=== PATIENT | female | born 1950 | race Caucasian/White ===

== ENCOUNTER 2016-09-07 01:01 | Observation (INO) ==
--- NOTE | 2016-09-07 01:34 | Emergency Department Note ---
Disposition Clinical Impression: Numbness, Sinus bradycardia Disposition: Admitted As Inpatient Condition: Good Referrals: Caden bAel MD [Primary Care Provider] - Forms: ED Satisfaction Letter Time of Disposition: 02:36 General Adult HPI - General Chief complaint: ED Neuro Symptoms/Deficit Stated complaint: facial numbness, L hand tightness Time Seen by Provider: 09/07/16 01:07 Source: patient, family Mode of arrival: ambulatory Limitations: no limitations Nursing Notes Reviewed: Yes Vital Signs Reviewed: Yes - History of Present Illness HPI Narrative: Patient is a 66-year-old female presents to the emergency department with her for numbness in her left face, left hand, and left foot. Patient states that she went to bed around 9 PM and woke up around midnight with left facial numbness and left hand numbness this then progressed to having left foot numbness. Patient denies any recent injuries or falls. Patient states she has had similar symptoms in the past couple of years where she would wake up and have numbness but the symptoms would usually only last an hour. Patient states that the symptoms have lasted longer than normal. She denies any history of stroke or blood thinners. Patient denies any change in speech or vision. confirms that her speech is normal for her. Patient also states that she has had some palpitations and lightheadedness for the past month. Pain Scale: 0 - Related Data Allergies Allergy/AdvReac Type Severity Reaction Status Date / Time oxybutynin Allergy Dizziness Verified 03/05/15 08:54 sulfamethoxazole Allergy Nausea Verified 03/05/15 08:53 [From Bactrim] trimethoprim [From Bactrim] Allergy Nausea Verified 03/05/15 08:53 All systems ED: reviewed and negative except as stated. Constitutional: Denies: fever, chills Cardiovascular: Reports: palpitations. Denies: chest pain Respiratory: Denies: dyspnea Neurological: Reports: numbness (Left face, left hand, left foot). Denies: headache, weakness, abnormal gait Past Medical History - Past Medical History Medical history: Reports: other Surgical history: Reports: appendectomy, cholecystectomy Psychiatric history: Reports: no psych history - Social History Smoking Status: Unknown if ever smoked Alcohol use: Reports: none Drug use: Reports: none Physical Exam - General Limitations: no limitations General appearance: alert, in no apparent distress - Head Head exam: atraumatic, normocephalic - Eye Eye exam: Present: normal appearance, PERRL - Neck Neck exam: Present: normal inspection, full ROM, trachea midline - Respiratory Respiratory exam: Present: normal lung sounds bilaterally. Absent: respiratory distress, wheezes - Cardiovascular Cardiovascular exam: Present: normal rhythm, bradycardia, normal heart sounds, + S1, +S2 - Abdominal Exam Abdominal exam: Present: soft, Non-Tender, normal bowel sounds - Expanded Lower Extremity Exam Neurovascular/Tendon exam: Present: normal fine/light touch. Absent: motor deficit, sensory deficit - Neurological Exam Neurological exam: Present: alert, oriented X3 - Psychiatric Psychiatric exam: Present: normal affect, normal mood - Skin Skin exam: Present: warm, dry, intact Course Vital Signs Temperature 98.2 F 09/07/16 01:05 Pulse Rate 51 09/07/16 01:05 Respiratory Rate 16 09/07/16 01:05 Blood Pressure 145/83 09/07/16 01:05 O2 Sat by Pulse Oximetry 100 09/07/16 01:05 Temperature 98.2 F 09/07/16 01:05 Pulse Rate 49 09/07/16 02:59 Respiratory Rate 16 09/07/16 02:59 Blood Pressure 117/43 09/07/16 02:59 O2 Sat by Pulse Oximetry 99 09/07/16 02:59 Oxygen Delivery Oxygen Delivery Room Air Medical Decision Making - [facility] Narrative Medical decision making narrative: Patient is a 66-year-old female presents to the emergency department with numbness of the left face, left hand and left foot. Patient stated that last well-known was 9 PM so we were outside of the window for TPA. We have ordered laboratory tests as well as a CT of the patient's head. CT of the head shows no acute intracranial process. EKG showed sinus bradycardia. Based on the patient still having numbness of her face as well as being bradycardic into the low 40s to admit the patient to the hospital for further evaluation. I spoke with the hospitalist Dr. Raymundo at 3:14am and he has accepted the patient to his service. - Lab Data Lab results reviewed: Yes I reviewed the patient's lab results. Result diagrams: 09/07/16 01:10 09/07/16 01:10 Lab Results 09/07/16 09/07/16 09/07/16 Range/Units 01:10 01:10 01:10 WBC 7.3 (4.3-11.1) K/mcL RBC 4.83 (3.82-4.97) M/mcL Hgb 14.0 (11.5-15.4) g/dL Hct 42.2 (35.3-44.9) % MCV 87.4 (83.0-100.0) fL MCH 29.0 (28.0-33.3) pg MCHC 33.2 (31.6-35.5) g/dL RDW 13.5 (11.5-14.5) % Plt Count 171 (140-400) K/mcL MPV 11.2 (9.4-12.4) fL Immature Gran % 0.1 (0-4) % Seg Neutrophils % 46.1 % Lymphocytes % 40.8 % Monocytes % 5.6 % Eosinophils % 6.7 % Basophils % 0.7 % Neutrophils # 3.4 (1.6-8.9) K/mcL Lymphocytes # 3.0 (0.6-4.6) K/mcL Monocytes # 0.4 (0.0-1.3) K/mcL Eosinophils # 0.5 (0.0-0.6) K/mcL Basophils # 0.1 (0.0-0.2) K/mcL Sodium 138 (136-145) mEq/L Potassium 4.5 (3.5-4.5) mEq/L Chloride 104 (98-109) mEq/L Carbon Dioxide 29 (19-29) mEq/L BUN 14 (7-20) mg/dL Creatinine 0.77 (0.57-1.11) mg/dL Est GFR ( Amer) > 60 (> 60) Est GFR (Non-Af Amer) > 60 (> 60) BUN/Creatinine Ratio 18 (6-26) Glucose 90 (70-99) mg/dL Calculated Osmolality 286 (280-300) Calcium 9.8 (8.6-10.8) mg/dL Total Bilirubin 0.4 (0.2-1.2) mg/dL AST 25 (5-34) Units/L ALT 18 (0-55) Units/L Alkaline Phosphatase 91 (38-126) Units/L Troponin I 0.01 (0-0.03) ng/mL Serum Total Protein 7.1 (6.0-8.3) g/dL Albumin 3.9 (3.5-5.0) g/dL Globulin 3.2 (2.4-3.5) g/dL Albumin/Globulin Ratio 1.2 (1.1-2.2) TSH 1.530 (0.350-4.840) mcIU/mL Urine Color (Yellow) Urine Clarity (Clear) Urine pH (5.0-8.0) pH Units Ur Specific [place] (1.010-1.025) Urine Protein (Neg-Trace) mg/dL Urine Glucose (UA) (Normal) mg/dL Urine Ketones (Negative) mg/dL Urine Blood (Negative) Urine Nitrite (Negative) Urine Bilirubin (Negative) Urine Urobilinogen (Normal) mg/dL Ur Leukocyte Esterase (Negative) Urine Microscopic WBC (0-3) per hpf Ur Squamous Epith Cells (None-Few) per lpf Ur Culture Indicated? (NO) 09/07/16 Range/Units 02:22 WBC (4.3-11.1) K/mcL RBC (3.82-4.97) M/mcL Hgb (11.5-15.4) g/dL Hct (35.3-44.9) % MCV (83.0-100.0) fL MCH (28.0-33.3) pg MCHC (31.6-35.5) g/dL RDW (11.5-14.5) % Plt Count (140-400) K/mcL MPV (9.4-12.4) fL Immature Gran % (0-4) % Seg Neutrophils % % Lymphocytes % % Monocytes % % Eosinophils % % Basophils % % Neutrophils # (1.6-8.9) K/mcL Lymphocytes # (0.6-4.6) K/mcL Monocytes # (0.0-1.3) K/mcL Eosinophils # (0.0-0.6) K/mcL Basophils # (0.0-0.2) K/mcL Sodium (136-145) mEq/L Potassium (3.5-4.5) mEq/L Chloride (98-109) mEq/L Carbon Dioxide (19-29) mEq/L BUN (7-20) mg/dL Creatinine (0.57-1.11) mg/dL Est GFR ( Amer) (> 60) Est GFR (Non-Af Amer) (> 60) BUN/Creatinine Ratio (6-26) Glucose (70-99) mg/dL Calculated Osmolality (280-300) Calcium (8.6-10.8) mg/dL Total Bilirubin (0.2-1.2) mg/dL AST (5-34) Units/L ALT (0-55) Units/L Alkaline Phosphatase (38-126) Units/L Troponin I (0-0.03) ng/mL Serum Total Protein (6.0-8.3) g/dL Albumin (3.5-5.0) g/dL Globulin (2.4-3.5) g/dL Albumin/Globulin Ratio (1.1-2.2) TSH (0.350-4.840) mcIU/mL Urine Color Yellow (Yellow) Urine Clarity Clear (Clear) Urine pH 6.0 (5.0-8.0) pH Units Ur Specific [place] 1.013 (1.010-1.025) Urine Protein Negative (Neg-Trace) mg/dL Urine Glucose (UA) Normal (Normal) mg/dL Urine Ketones Negative (Negative) mg/dL Urine Blood Negative (Negative) Urine Nitrite Negative (Negative) Urine Bilirubin Negative (Negative) Urine Urobilinogen Normal (Normal) mg/dL Ur Leukocyte Esterase Small H (Negative) Urine Microscopic WBC 0-3 (0-3) per hpf Ur Squamous Epith Cells Few (None-Few) per lpf Ur Culture Indicated? YES A (NO) - Radiology Data Radiology results reviewed: Yes I reviewed the patient's radiology results. Chest X-Ray 09/07/16 01:26 IMPRESSION: No acute cardiopulmonary findings. D/ / Hira Arellano MD / Hira Arellano MD Interpreting Provider: Hira Arellano MD Head CT 09/07/16 01:27 IMPRESSION: No acute intracranial abnormality. D/ / Hira Arellano MD / Hira Arellano MD Interpreting Provider: Hira Arellano MD - EKG Data EKG #1 EKG attestation: Yes I reviewed and interpreted this EKG. EKG results narrative: EKG shows sinus bradycardia with a rate of 52 bpm, IA interval 133, QRS duration of 90, QTc of 434, with a normal axis. There are no acute ischemic changes on this EKG. Attestation Statement - Attestation Attestation: I personally interviewed and examined this patient and my medical decision- making was reviewed with the ED Resident Physician, Dr. callahan. I agree with the documented findings, disposition and treatment plan as described except to the extent set forth below. Patient is a 66-year-old white female who presents to the emergency Department today with complaints of left-sided facial and upper extremity numbness which began sometime approximately around 9 PM this evening. Patient denies any facial droop, no slurred speech, no extremity weakness, no vertigo or dizziness , no headache or visual changes. Patient with sinus bradycardia on arrival remainder of vital signs are stable. NIH stroke scale on arrival equals 0. Patient does not meet criteria for TPA. Patient with isolated subjective paresthesias of the left face and arm. Patient states on night monitor and continuous pulse ox IV saline well was established and labs were drawn and sent. EKG was obtained which was a normal sinus rhythm with no acute ischemic changes. Noncontrast head CT was obtained which was within normal limits. All of patient's lab evaluation was within normal limits. Patient's symptoms have remained stable over time and persisted. We recommend at this point that she be admitted for further neurologic evaluation and workup for stroke symptoms. Patient agrees with this plan, case was discussed with the hospitalist who accepted the patient for admission for further evaluation and management.
[2016-09-07 01:37] LABS: Basophils # 0.1 K/mcL (0.0-0.2); Basophils % 0.7 %; Eosinophils # 0.5 K/mcL (0.0-0.6); Eosinophils % 6.7 %; Hematocrit 42.2 % (35.3-44.9); Immature Granulocytes % 0.1 % (0-4); Lymphocytes % 40.8 %; Mean Corpuscular HGB Conc 33.2 g/dL (31.6-35.5); Mean Corpuscular Volume 87.4 fL (83.0-100.0); Mean Platelet Volume 11.2 fL (9.4-12.4); Monocytes # 0.4 K/mcL (0.0-1.3); Monocytes % 5.6 %; Neutrophils # 3.4 K/mcL (1.6-8.9); Platelet Count 171 K/mcL (140-400); Red Blood Count 4.83 M/mcL (3.82-4.97); Red Cell Distribution Width 13.5 % (11.5-14.5); Segmented Neutrophils % 46.1 %
[2016-09-07 01:47] LABS: Alanine Aminotransferase 18 Units/L (0-55); Albumin 3.9 g/dL (3.5-5.0); Albumin/Globulin Ratio 1.2 (1.1-2.2); Alkaline Phosphatase 91 Units/L (38-126); Aspartate Amino Transferase 25 Units/L (5-34); BUN/Creatinine Ratio 18 (6-26); Bilirubin,Total 0.4 mg/dL (0.2-1.2); Blood Urea Nitrogen 14 mg/dL (7-20); Calcium 9.8 mg/dL (8.6-10.8); Carbon Dioxide 29 mEq/L (19-29); Chloride 104 mEq/L (98-109); Globulin 3.2 g/dL (2.4-3.5); Glucose 90 mg/dL (70-99); Osmolality,Calculated 286 (280-300); Potassium 4.5 mEq/L (3.5-4.5); Sodium 138 mEq/L (136-145); Total Protein 7.1 g/dL (6.0-8.3); eGFR For African Americans > 60 (> 60); eGFR For Non-African Americans > 60 (> 60)
[2016-09-07 02:32] LABS: Bilirubin,Urine Negative (Negative); Blood,Urine Negative (Negative); Clarity,Urine Clear (Clear); Color,Urine Yellow (Yellow); Glucose,Urine (UA) Normal (Normal); Ketones,Urine Negative (Negative); Leukocyte Esterase,Urine Small (Negative); Nitrite,Urine Negative (Negative); Protein,Urine Negative (Neg-Trace); Specific Gravity,Urine 1.013 (1.010-1.025); Urobilinogen,Urine Normal (Normal)
[2016-09-07] MEDS ORDERED: Aspirin 81 MG TAB.CHEW PO STA (02:34)
[2016-09-07 02:49] LABS: Squamous Epithelial Cell,Urine Few per lpf (None-Few)
[2016-09-07 02:50] LABS: WBC,Urine 0-3 per hpf (0-3)
--- NOTE | 2016-09-07 04:02 | Internal Med History&Physical ---
Date of Encounter: 09/07/16 Time of Encounter: 03:58 Assessment and Plan (1) TIA (transient ischemic attack) Current visit: Yes Status: Acute Her symptoms of left sided numbness started around midnight and have persisted since then Unclear etiology at this time, but may be related to her bradycardia Head CT was negative, but will further investigate with MRI w/o contrast Obtain echocardiogram, carotid US, lipid panel, B12, Folate Will continue home ASA, and start on statin pending lipid panel results Qualifiers: Qualified Code(s): G45.9 - Transient cerebral ischemic attack, unspecified (2) Sinus bradycardia Current visit: Yes Status: Chronic Patient has documented bradycardia in previous office visit within last few years She is active, thus this may be her normal resting heart rate and her symptoms today may be another related to another process Once workup is completed after hospital stay, she may benefit from outpatient follow up with Holter monitor or loop recorder TSH obtained today was normal; will await echocardiogram results (3) DVT prophylaxis Current visit: Yes Status: Acute Heparin 5000 units BID Internal Medicine - H&P: HPI Chief complaint: numbness Admitted From: Home Plans for Post Hospital Care: Home History of present illness: Ms. Quiroz is a 66 year old female who presents with left-sided numbness started at midnight. Patient states that she went to sleep around 9 PM last night and woke up with symptoms around midnight. She said it started with numbness on the left side of her face and slowly progress down her left arm and then left leg. She states the symptoms are still about the same as when it started. Denies any chest pain, nausea, vomiting, shortness of breath, fevers, visual changes, loss of consciousness. She states she has had palpitations and lightheadedness intermittently for the last month. She claims to have had previous similar episodes in the past couple years with left-sided numbness, however those episodes only lasted 1 hour and resolved on its own. Patient denied having any outpatient workup for this. She states that the symptoms have usually occurred when she was in bed. She denies any significant medical history and only takes a baby aspirin and multivitamins. She has been told that she has a low heart rate, and had an EKG done in the office but she was asymptomatic at the time. Does have significant family history as her mother had a pacemaker placed due to low heart rate. She lives with her and is usually independent with activities of daily living. She is normally very active and just recently walked a 5K. Past Med Surg Social Fam HX - Past Medical History Medical history: other Psychiatric history: no psych history - Past Surgical History Surgical History: appendectomy, cholecystectomy - Social History Smoking Status: Unknown if ever smoked Alcohol use: none Drug use: none Internal Medicine - H&P: Meds Allergies oxybutynin Allergy (Verified 03/05/15 08:54) Dizziness sulfamethoxazole [From Bactrim] Allergy (Verified 03/05/15 08:53) Nausea trimethoprim [From Bactrim] Allergy (Verified 03/05/15 08:53) Nausea All Systems PM: A 10-system review of systems was performed and is negative for pertinent findings except as documented above in the HPI. - Constitutional Constitutional: no chills, no fever(s), no night sweats - EENT Eyes: no blurry vision, no change in vision, no discharge, no pain, no photophobia Ears: no ear discharge, no ear pain, no tinnitus Nose, mouth and throat: no dysphagia, no nasal discharge, no neck pain, no sore throat - Cardiovascular Cardiovascular ROS IM: irregular heart rhythm, lightheadedness, palpitations, no chest pain, no diaphoresis, no dyspnea, no syncope - Respiratory Respiratory: no cough, no dyspnea, no wheezing, no excessive phlegm production - Gastrointestinal Gastrointestinal: no abdominal pain, no diarrhea, no hematemesis, no hematochezia, no melena, no nausea, no vomiting - Genitourinary Genitourinary: no change in urinary stream, no dysuria, no flank pain, no hematuria - Musculoskeletal Musculoskeletal ROS IM: numbness, no tingling - Integumentary Integumentary IM: no rash, no unusual bruising - Neurological Neurological ROS: no confusion, no convulsions, no focal weakness, no numbness, no tingling, no tremor(s) - Hematologic/Lymphatic Hematologic/Lymphatic: no easy bruising - Constitutional Vitals: Temp Pulse Resp BP Pulse Ox 98.2 F 49 16 111/53 99 09/07/16 01:05 09/07/16 02:59 09/07/16 03:44 09/07/16 03:44 09/07/16 02:59 General appearance: Present: cooperative, pleasant, no acute distress, answers questions appropriately - Head Head exam: Present: atraumatic, normocephalic - Eye Eye exam: Present: PERRL, conjuntiva pink, sclera anicteric - Neck Neck exam general surgery: Present: supple, trachea midline. Absent: lymphadenopathy - Respiratory Respiratory exam: Present: CTAB. Absent: accessory muscle use, rales, rhonchi, wheezes - Cardiovascular Cardiovascular exam: Present: bradycardia, +S1, +S2. Absent: diastolic murmur, gallop, rubs, systolic murmur - GI/Abdominal GI/Abdominal exam: Present: normal bowel sounds, soft, no peritoneal signs. Absent: distended, tenderness - Extremities Exam Extremities exam: Present: warm, radial pulses palpable and symetrical. Absent : calf tenderness, cyanotic, pedal edema - Neurological Exam Neurological exam: Present: alert, CN II-XII intact, no focal deficits, strengths equal and symetr throughout. Absent: facial droop, speech deficit Additional comments: numbness noted in left side of face near cheek and around mouth, in the left hand/fingers, and left leg - midway down her left almanza to her toes. - Skin Skin exam: Present: dry, intact Internal Med - H&P Results - Labs CBC & Chem 7: 09/07/16 01:10 09/07/16 01:10
[2016-09-07] MEDS ORDERED: Ondansetron ODT 4 MG TAB.RAPDIS SL PRN (04:21)
[2016-09-07] MEDS ORDERED: Naloxone 0.4 MG/ML INJ IVP PRN (04:21)
[2016-09-07] MEDS ORDERED: Acetaminophen 325 MG TABLET PO PRN (04:21)
[2016-09-07] MEDS: *HR* Heparin 5,000 UNIT/ML VIAL SQ SCH ×2 (05:02→16:45)
[2016-09-07 05:05] LABS: Chol/HDL Ratio 3.3 (0-4.9)
[2016-09-07 05:39] LABS: Folate 13.7 ng/mL (7.0-31.4)
[2016-09-07] MEDS: Aspirin 81 MG TAB.CHEW PO SCH (08:09)
--- NOTE | 2016-09-07 09:05 | Internal Med Progress Note ---
<Glynn Hansen - Last Filed: 09/07/16 14:57> Date of Encounter: 09/07/16 Time of Encounter: 09:04 - Assessment and plan (1) TIA (transient ischemic attack) Current Visit: Yes Status: Resolved Assessment and plan: Resolved TIA--facial, left upper/lower extremity numbness. Head CT/brain MRI negative. Prelim BCU demonstrated bilateral 60-79% stenosis. TTE 09/07/16: LVEF 55-60%, no significant valvular dysfunction Continue aspirin 81 mg daily Qualifiers: Qualified Code(s): G45.9 - Transient cerebral ischemic attack, unspecified (2) Carotid stenosis, bilateral Current Visit: Yes Status: Acute Assessment and plan: Carotid bruits on exam with recurrent TIA symptoms lasting > 1 hour. Carotid ultrasound shows bilateral carotid stenosis 60-79% . Patient currently on aspirin 81 mg daily. Lipid Panel shows Total cholesterol 193, LDL 114, HDL 58, the ACC/AHA guidelines suggest no indication to be on a statin. Vascular surgery/Dr. Mabry consulted, awaiting further recommendations (3) Sinus bradycardia Current Visit: Yes Status: Chronic Assessment and plan: Cardiology consulted today due to concern for bradycardia. She may benefit from outpatient follow up with Holter monitor or loop recorder. Patient reports HR always runs low. (4) DVT prophylaxis Current Visit: Yes Status: Acute Assessment and plan: Heparin. Patient seen and examined, plan discussed with and agreed upon with Dr. Price - Subjective Interval history: Patient resting comfortably in bed. Patient reports weakness and numbness has now resolved and she denies any new symptoms. Patient awaiting echo, carotid ultrasound, and brain MRI. - Constitutional Vitals: Temp Pulse Resp BP Pulse Ox 97.7 F 45 16 106/58 98 09/07/16 07:05 09/07/16 04:32 09/07/16 04:32 09/07/16 07:05 09/07/16 07:05 General appearance: Present: cooperative, A&O X 3, pleasant, no acute distress, answers questions appropriately - Head Head exam: Present: atraumatic, normocephalic - Eye Eye exam: Present: PERRL, conjuntiva pink, sclera anicteric Pupils: Present: PERRL - ENT ENT exam: Present: mucous membranes dry, normal oropharynx - Neck Neck exam general surgery: Present: supple, trachea midline. Absent: lymphadenopathy Additional comments: Bilateral carotid bruit present - Respiratory Respiratory exam: Present: CTAB. Absent: accessory muscle use, rales, rhonchi, wheezes - Cardiovascular Cardiovascular exam: Present: bradycardia, +S1, +S2. Absent: diastolic murmur, gallop, rubs, systolic murmur, tachycardia - GI/Abdominal GI/Abdominal exam: Present: normal bowel sounds, soft, no peritoneal signs. Absent: distended, tenderness - Extremities Exam Extremities exam: Present: warm, radial pulses palpable and symetrical. Absent : calf tenderness, cyanotic, pedal edema - Neurological Exam Neurological exam: Present: alert, CN II-XII intact, normal gait, oriented X3, no focal deficits, strengths equal and symetr throughout. Absent: abnormal gait , motor sensory deficit, pronater drift, facial droop, speech deficit - Psychiatric Psychiatric exam: Present: normal affect, normal mood - Skin Skin exam: Present: dry, intact, warm Internal Medicine: Result - Labs CBC & Chem 7: 09/07/16 01:10 09/07/16 01:10 Consult Discharge Plan - Plan Referrals: Caden Abel MD [Primary Care Provider] - Rand West CNP [Advanced Practice Nurse] - 09/16/16 11:00 am <Mikey Price - Last Filed: 09/07/16 19:08> Date of Encounter: 09/07/16 - Constitutional Vitals: Temp Pulse Resp BP Pulse Ox 97.5 F L 44 15 117/58 98 09/07/16 15:00 09/07/16 15:00 09/07/16 15:00 09/07/16 15:00 09/07/16 15:00 Internal Medicine: Result - Labs CBC & Chem 7: 09/07/16 01:10 09/07/16 01:10 - Impressions Impressions Brain MRI 09/07/16 04:21 IMPRESSION: No acute intracranial abnormality. Mild to moderate chronic microvascular disease. Sinus mucosal disease. D/ / Emerson Alexander MD / Emerson Alexander MD Interpreting Provider: Emerson Alexander MD - Attending Attestation I examined this patient and my medical decision-making was reviewed with the Resident Physician. I agree with the documented findings, disposition and treatment plan as described except to the extent set forth below. Patient admitted earlier today with TIA. Has bradycardia. Carotid stenosis. Anticipate d/c tomorrow.
--- NOTE | 2016-09-07 14:27 | Cardiology Consult Note ---
Date of Encounter: 09/07/16 Time of Encounter: 14:00 Assessment and Plan (1) Sinus bradycardia Current Visit: Yes Status: Chronic Patient presents with symptoms concerning for TIA--facial, left upper/lower extremity numbness. Head CT/brain MRI negative. Prelim BCU demonstrated bilateral 60-79% stenosis. Long-standing hx of sinus bradycardia with HR low 40's. Doubt etiology of symptoms are secondary to bradycardia. ECG in 2003 demonstrated SB, HR 51. ECG upon presentation: HR 52 SB QT/QTc 453/434 ms. Telemetry review: avg HR=55 SB, min=36 during nocturnal hours. No significant pause. TTE demonstrates preserved LVEF with normal wall motion, no significant valvular dysfunction. No indication for PPM at this time. Avoid AV shamir blocking agents given baseline sinus bradycardia. Recommend Vascular Surgery consult for further evaluation/rec regarding bilateral carotid stenosis. No further inpatient recommendations from Cardiology standpoint. Discussion w patient/family: The assessment and plan as outlined above was discussed with the patient and/or family members who expressed understanding and agreement. All questions were answered. Thank you for involving us in the care of your patient. Please call with any questions. The patient will be discussed and reviewed with Dr. Treadwell; changes to be made accordingly. History of Present Illness Consult date: 09/07/16 Requesting physician: Mikey Price Consult reason: sinus bradycardia Chief complaint: TIA symptoms History of present illness: Ms. Quiroz is a 66 year old female who presented to the ED after she was awakened around 12AM with left-sided lip/facial numbness; she states numbness was also present in left upper arm and left foot/leg. Upon arrival to the ED, she was worked up for TIA/CVA. She notes symptoms resolved around 12 noon. Also reports palpitations, occasional lightheadedness, and fatigue; palpitations have been occurring for the past several weeks, nothing seems to trigger or exacerbate palpitations. Reports walked a 5K 2 weeks ago without issues. Cardiology consulted today due to concern for bradycardia. Upon review, hx of bradycardia dating back to 2012. Per review of outpatient records, HR typically mid 40's-mid 50's. ECG in May 2013 demonstrated SB HR 39. She reports HR always runs low. Prior CV testing: TTE 09/07/16: LVEF 55-60%, no significant valvular dysfunction TTE 07/07/13: SB, LVEF 60-65%, mild TR, normal wall motion Low level regadenoson 07/07/13: perfusion imaging was negative for ischemia or infarct, gated EF=70% Past Med Surg Social Fam HX - Past Medical History Attestation: Yes The following information was validated with the patient. Source: patient, old records reviewed Medical history: other (bradycardia, overactive bladder, diverticulosis) Psychiatric history: no psych history - Past Surgical History Surgical History: appendectomy, cholecystectomy - Social History Smoking Status: Never smoker Alcohol use: none Drug use: none - Family History Mother Hx Family Cardiac Disorders: Yes Brother Hx Family Cardiac Disorders: Yes Medications and Allergies Aspirin [Lo-Dose Aspirin EC] 81 mg PO DAILY 09/07/16 [History] Calcium Carbonate [Calcium] 500 mg PO DAILY 09/07/16 [History] Ergocalciferol (VITAMIN D2) [Vitamin D] 400 unit PO DAILY 09/07/16 [History] Allergies oxybutynin Allergy (Verified 03/05/15 08:54) Dizziness sulfamethoxazole [From Bactrim] Allergy (Verified 03/05/15 08:53) Nausea trimethoprim [From Bactrim] Allergy (Verified 03/05/15 08:53) Nausea All Systems Review: A 10-system review of systems was performed and is negative for pertinent findings except as documented above in the HPI. - Cardiovascular Cardiovascular: as per HPI Physical Examination Vital Signs, Last 4 Hours Temp Pulse Resp BP Pulse Ox 09/07/16 11:00 97.7 F 46 15 111/76 98 General: Conversant, No Apparent Distress HEENT: Atraumatic, Normocephaly Cardiac: Other (bradycardiac, S1 S2, no significant valvular dysfunction) Lungs: Normal Breath Sounds Neuro: Alert and responsive Abdomen: Soft Skin: No rashes noted on visualized skin Musculoskeletal: No Chest Wall Tenderness Extremities: No Edema, Normal Pulses Results 09/07/16 01:10 09/07/16 01:10 Active Medications Acetaminophen (Tylenol) 650 mg PO Q6HR PRN PRN Reason: Mild Pain (1-3) Stop: 03/09/17 04:22 Aspirin (Aspirin) 81 mg PO DAILY COUNT INCLUDES THE [facility] Stop: 03/09/17 09:01 Last Admin: 09/07/16 08:09 Dose: Not Given Docusate Sodium (Colace) 100 mg PO BID PRN PRN Reason: Constipation Stop: 03/09/17 04:22 Heparin Sodium (Porcine) (Heparin) 5,000 unit SQ Q12HCO ELIUD Stop: 03/09/17 06:01 Last Admin: 09/07/16 05:02 Dose: 5,000 unit Naloxone HCl (Narcan) 0.4 mg IVP Q2MIN PRN PRN Reason: Opioid Reversal Stop: 03/09/17 04:22 Ondansetron HCl (Zofran Odt) 4 mg SL Q8HR PRN PRN Reason: Nausea And Vomiting Stop: 03/09/17 04:22 - Imaging and Cardiology Chest Xray: report reviewed Stress Test: report reviewed Echo: report reviewed Other Results: 12 hour tele: avg HR=55 SB. Min=36 bpm during nocturnal hours - EKG Interpretation EKG results cardiology: personally reviewed Consult Discharge Plan - Plan Referrals: Caden Abel MD [Primary Care Provider] - Rand West CNP [Advanced Practice Nurse] - 09/16/16 11:00 am
--- NOTE | 2016-09-07 16:54 | Vascular/Endovasc Consult Note ---
Date of Encounter: 09/07/16 Time of Encounter: 16:00 Assessment and Plan (1) Carotid stenosis, bilateral Current Visit: Yes Status: Acute The patient has bilateral low-end 60-79% carotid artery stenosis. I personally reviewed the carotid duplex and there does not appear to be any associated plaque. There is not an indication for surgical intervention. At this point I would treat with aspirin 81 mg per day. I would see her in 6 months with repeat carotid duplex evaluation. I would not perform CTA at this point will be glad to follow along with you during hospitalization. I would like to see her as an outpatient. - History of Present Illness Consult date: 09/07/16 Consult reason: Fascial numbness and left sided numbness Chief complaint: Facial numbness and left-sided numbness History of present illness: Ms. Quiroz is a 66 year old female Who has noted being increasingly tired and lightheaded over the last 6 months. She has had no focal motor neurologic deficit until last evening. At midnight she developed perioral tingling and numbness. She then felt that the left side of her face had tingling and numbness and finally her left hand and left foot. She presented to the emergency room and stated she was unable to walk at that time. CAT scan of the head was essentially normal MRI of the brain demonstrated microvascular disease. The patient was admitted to the hospital and a subsequent carotid duplex evaluation demonstrated 60-79% stenosis on both carotid arteries. I personally reviewed the carotid duplex. The velocity increases occur at curves with no evidence of plaque. There is no evidence of ruptured plaque. Flow patterns are nonturbulent outside of the curve sample area. Peak systolic flow velocities on the right internal carotid artery are 152 cm/s. The curve is not tight enough to be a kink The patient's neurologic symptoms resolved at about 6 hours. On examination I can find no neurologic sequela Past Med Surg Social Fam HX - Past Medical History Medical history: other (bradycardia, overactive bladder, diverticulosis) Psychiatric history: no psych history - Past Surgical History Surgical History: appendectomy, cholecystectomy - Social History Smoking Status: Never smoker Alcohol use: none Drug use: none - Family History Mother Hx Family Cardiac Disorders: Yes Brother Hx Family Cardiac Disorders: Yes Medications and Allergies Aspirin [Lo-Dose Aspirin EC] 81 mg PO DAILY 09/07/16 [History] Calcium Carbonate [Calcium] 500 mg PO DAILY 09/07/16 [History] Ergocalciferol (VITAMIN D2) [Vitamin D] 400 unit PO DAILY 09/07/16 [History] Allergies oxybutynin Allergy (Verified 03/05/15 08:54) Dizziness sulfamethoxazole [From Bactrim] Allergy (Verified 03/05/15 08:53) Nausea trimethoprim [From Bactrim] Allergy (Verified 03/05/15 08:53) Nausea All Systems Review: A 10-system review of systems was performed and is negative for pertinent findings except as documented above in the HPI. Exam Vital Signs, Last 4 Hours Temp Pulse Resp BP Pulse Ox 09/07/16 15:00 97.5 F L 44 15 117/58 98 General: Present: No Apparent Distress HEENT: Present: Trachea midline, Pupils equal Neck: Present: Other (No carotid bruits no tracheal deviation) Cardiac: Present: Reg Rate and Rhythm, Normal S1 and S2, No Murmur Lungs: Present: Normal Breath Sounds, No Wheeze, Rales, Rhonchi Neuro: Present: Alert and responsive, No focal deficits noted, Cranial nerves grossly intact Abdomen: Present: Soft, Non-tender Vascular: Present: Other (No cervical carotid bruits. Bilateral superficial temporal arteries have normal pulse and normal peripheral pulses) Consult Discharge Plan - Plan Referrals: Caden Abel MD [Primary Care Provider] - Rand West CNP [Advanced Practice Nurse] - 09/16/16 11:00 am
[2016-09-08] MEDS: *HR* Heparin 5,000 UNIT/ML VIAL SQ SCH (05:11)
[2016-09-08 06:11] LABS: Hematocrit 41.3 % (35.3-44.9); Hemoglobin 14.2 g/dL (11.5-15.4); Mean Corpuscular HGB Conc 34.4 g/dL (31.6-35.5); Mean Corpuscular Hemoglobin 30.2 pg (28.0-33.3); Mean Corpuscular Volume 87.9 fL (83.0-100.0); Mean Platelet Volume 11.4 fL (9.4-12.4); Platelet Count 161 K/mcL (140-400); Red Cell Distribution Width 13.7 % (11.5-14.5)
--- NOTE | 2016-09-08 06:21 | Electrocardiograph Report ---
[address] [address] Test Date: 2016-09-07 Pat Name: Madeline Quiroz Department: 102 Room: 2NE16 Gender: F Penal Officer: Juan R : 1950 Requested By: Wood Landers Order Number: [id number] Reading MD: Kaiser Nicole MD Measurements Intervals [place] Rate: 52 P: 39 [place]: 133 QRS: 51 QRSD: 98 T: 48 QT: 453 QTc: 434 Interpretive Statements SINUS BRADYCARDIA Electronically Signed On 09-08-2016 6:19:31 EDT by Kaiser Nicole MD
--- NOTE | 2016-09-08 06:24 | Electrocardiograph Report ---
[place] [address] Test Date: 2016-09-07 Pat Name: Madeline Quiroz Department: 111 Room: 2NE16 Gender: F Business Analytics Intern: CHEVY : 1950 Requested By: Mikey Price Order Number: [id number] Reading MD: Kaiser Nicole MD Measurements Intervals [place] Rate: 48 P: 29 [place]: 160 QRS: 44 QRSD: 97 T: 34 QT: 499 QTc: 467 Interpretive Statements SINUS BRADYCARDIA WITH SINUS ARRHYTHMIA PROLONGED QT INTERVAL Electronically Signed On 09-08-2016 6:23:19 EDT by Kaiser Nicole MD
[2016-09-08 06:29] LABS: BUN/Creatinine Ratio 19 (6-26); Blood Urea Nitrogen 14 mg/dL (7-20); Calcium 9.3 mg/dL (8.6-10.8); Carbon Dioxide 30 mEq/L (19-29); Chloride 106 mEq/L (98-109); Glucose 84 mg/dL (70-99); Osmolality,Calculated 290 (280-300); Potassium 4.4 mEq/L (3.5-4.5); Sodium 140 mEq/L (136-145); eGFR For African Americans > 60 (> 60); eGFR For Non-African Americans > 60 (> 60)
[2016-09-08 07:12] VITALS: BP 109/54
[2016-09-08] MEDS: Aspirin 81 MG TAB.CHEW PO SCH (09:15)
--- NOTE | 2016-09-08 13:31 | Discharge Summary ---
<Glynn Hansen - Last Filed: 09/08/16 14:39> Date of Encounter: 09/08/16 Time of Encounter: 13:31 - Discharge Diagnosis (1) TIA (transient ischemic attack) Priority: Primary Status: Resolved Comments: Resolved TIA--facial, left upper/lower extremity numbness. Head CT/brain MRI negative. Prelim BCU demonstrated bilateral 60-79% stenosis. TTE 09/07/16: LVEF 55-60%, no significant valvular dysfunction Continue aspirin 81 mg daily Qualifiers: Qualified Code(s): G45.9 - Transient cerebral ischemic attack, unspecified (2) Carotid stenosis, bilateral Priority: Primary Status: Acute Comments: Cardiology recommends starting atorvastatin 40mg daily. Vascular surgery recommends no surgical intervention. Treat with aspirin 81 mg per day. Will see her in 6 months for repeat carotid duplex evaluation. (3) Sinus bradycardia Priority: Primary Status: Chronic Comments: Recommend outpatient follow-up with cardiology clinic in 3 weeks. Outpatient holter monitor could be considered to assess heart rate during normal daily activities. (4) DVT prophylaxis Priority: Primary Status: Acute Comments: Heparin. Patient seen and examined, plan discussed with and agreed upon with Dr. Gay - Discharge Medications Prescriptions: Atorvastatin [Lipitor] 40 mg PO HS #30 tab Home Medications: Aspirin [Lo-Dose Aspirin EC] 81 mg PO DAILY 09/07/16 [History] Calcium Carbonate [Calcium] 500 mg PO DAILY 09/07/16 [History] Ergocalciferol (VITAMIN D2) [Vitamin D] 400 unit PO DAILY 09/07/16 [History] Acetaminophen [Tylenol] 650 mg PO Q6HR PRN tab 09/08/16 [Rx] Atorvastatin [Lipitor] 40 mg PO HS #30 tab 09/08/16 [Rx] Docusate [Colace] 100 mg PO BID PRN 09/08/16 [Rx] Allergies/Adverse Reactions: Allergies oxybutynin Allergy (Verified 03/05/15 08:54) Dizziness sulfamethoxazole [From Bactrim] Allergy (Verified 03/05/15 08:53) Nausea trimethoprim [From Bactrim] Allergy (Verified 03/05/15 08:53) Nausea Procedures/tests Complete & Pending: Procedures Performed prior 72 hours Category Date Time Status MR head/brain wo con [MR] Routine MRI 09/07/16 04:21 Completed ECG 12 lead ECG [ECG] Routine Y 09/07/16 07:04 Completed EV carotid duplex imaging BI Routine Y 09/07/16 04:21 Completed EV echo with saline Routine Y 09/07/16 04:21 Completed Date of admission: 09/07/16 03:32 Primary care physician: Caden Abel MD Consults: 09/07/16 14:26 Consult to Vascular Surgery [CONS] Routine Consulting Provider: Vascular Surgery [place] Reason for Consult: Bilateral carotid stenosis, TIAs Time Notified: 14:27 Call Completed: Yes 09/07/16 14:33 Consult to Cardiology [CONS] Routine Comment: Consulting Provider: Cardiology [place] Reason for Consult: Bradycardia Time Notified: 14:00 Call Completed: Yes Discharging clinician: Ab Gay Anticipated date of discharge: 09/08/16 - Patient Status Disposition: Home, Self-Care Condition: Good Functional capacity at discharge: independent ambulation Overall status at discharge: patient is back to baseline - Discharge Instructions Instructions: Atorvastatin (By mouth), Transient Ischemic Attack (DC), Transient Ischemic Attack (GEN), Peripheral Vascular Disorders (DC), Bradycardia (DC) Follow Up With: Gilbert Mabry MD [Partnered Physician] - 03/11/17 8:30 am Rajwinder Anderson CNP [Partnered Physician] - 09/30/16 1:00 pm Manuel Treadwell MD [Partnered Physician] - (Rand Mills CNP [Advanced Practice Nurse] - 09/16/16 11:00 am Additional Instructions: Continue taking aspirin 81 mg daily. Start atorvastatin 40mg daily. Follow-up with Dr. Treadwell cardiology clinic in 3 weeks. Follow up with Dr. Mabry in 6 months for repeat carotid duplex evaluation. - Diet and Activity Activity: resume usual activities as tolerated Diet: low fat, low cholesterol Hospital course: Ms. Quiroz is a 66 year old female who presented to the ED after she was awakened around 12AM with left-sided lip/facial numbness; she states numbness was also present in left upper arm and left foot/leg and stated she was unable to walk at that time.. Upon arrival to the ED, she was worked up for TIA/CVA. The patient's neurologic symptoms resolved after about 6 hours. On examination I can find no neurologic sequela. She reports palpitations, occasional lightheadedness, and fatigue; palpitations have been occurring for the past several weeks, nothing seems to trigger or exacerbate palpitations. Cardiology consulted due to concern for bradycardia. Upon review, hx of bradycardia dating back to 2012. Per review of outpatient records, HR typically mid 40's-mid 50's. ECG in May 2013 demonstrated SB HR 39. She reports HR always runs low. Who has noted being increasingly tired and lightheaded over the last [address] scan of the head was essentially normal MRI of the brain demonstrated microvascular disease. The patient was admitted to the hospital and a subsequent carotid duplex evaluation demonstrated 60-79% stenosis on both carotid arteries. Vascular surgery was consulted and recommended repeat carotid ultrasound in 6 months. Patient instructed to continue aspirin 81 mg daily and start atorvastatin 40 mg daily. Patient to follow up with cardiology and vascular surgery upon discharge - Time Spent with Patient Total time spent providing and/or coordinating discharge services: - Constitutional Vitals: Temp Pulse Resp BP Pulse Ox 98.1 F 51 15 109/54 97 09/08/16 07:11 09/08/16 07:11 09/08/16 07:11 09/08/16 07:11 09/08/16 07:11 General appearance: Present: cooperative, A&O X 3, pleasant, no acute distress, answers questions appropriately - Head Head exam: Present: atraumatic, normocephalic - Eye Eye exam: Present: PERRL, conjuntiva pink, sclera anicteric Pupils: Present: PERRL - ENT ENT exam: Present: mucous membranes moist, normal oropharynx - Neck Neck exam general surgery: Present: supple, trachea midline. Absent: lymphadenopathy - Respiratory Respiratory exam: Present: CTAB. Absent: accessory muscle use, rales, rhonchi, wheezes - Cardiovascular Cardiovascular exam: Present: bradycardia, +S1, +S2. Absent: diastolic murmur, gallop, rubs, systolic murmur - GI/Abdominal GI/Abdominal exam: Present: normal bowel sounds, soft, no peritoneal signs. Absent: distended, tenderness - Extremities Exam Extremities exam: Present: warm, radial pulses palpable and symetrical. Absent : calf tenderness, cyanotic, pedal edema - Neurological Exam Neurological exam: Present: CN II-XII intact, oriented X3, no focal deficits. Absent: pronater drift, facial droop, speech deficit - Psychiatric Psychiatric exam: Present: normal affect, normal mood - Skin Skin exam: Present: dry, intact <Deidra,Ab P - Last Filed: 09/08/16 20:03> Date of Encounter: 09/08/16 Procedures/tests Complete & Pending: Procedures Performed prior 72 hours Category Date Time Status MR head/brain wo con [MR] Routine MRI 09/07/16 04:21 Completed ECG 12 lead ECG [ECG] Routine Y 09/07/16 07:04 Completed EV carotid duplex imaging BI Routine Y 09/07/16 04:21 Completed EV echo with saline Routine Y 09/07/16 04:21 Completed Date of admission: 09/07/16 03:32 Primary care physician: Caden Abel MD Consults: 09/07/16 14:26 Consult to Vascular Surgery [CONS] Routine Consulting Provider: Vascular Surgery [place] Reason for Consult: Bilateral carotid stenosis, TIAs Time Notified: 14:27 Call Completed: Yes 09/07/16 14:33 Consult to Cardiology [CONS] Routine Comment: Consulting Provider: Cardiology [place] Reason for Consult: Bradycardia Time Notified: 14:00 Call Completed: Yes Hospital course: Ms. Quiroz is a 66 year old female - Time Spent with Patient Total time spent providing and/or coordinating discharge services: - Constitutional Vitals: Temp Pulse Resp BP Pulse Ox 98.1 F 51 15 109/54 97 09/08/16 07:11 09/08/16 07:11 09/08/16 07:11 09/08/16 07:11 09/08/16 07:11 - Attending Attestation I examined this patient and my medical decision-making was reviewed with the Resident Physician. I agree with the documented findings, disposition and treatment plan as described except to the extent set forth below.
--- NOTE | 2016-09-08 21:12 | Carotid Imaging Report ---
Carotid Duplex Patient Name:Madeline Quiroz Order Number:[id number] Procedure Date:09/07/2016 Date:1950ge:66 yrs Gender:Female Lt BP:116 / 69 mmHg Rt.BP:123 / 78 mmHgHeart Rate: Location:[facility] Room #: 2NE16 Is Manager:Ron Aguirre RN Referring MD:Jason Ramirez DO design engineer:Caden Abel MD Reading MD:Kevin Simons MD , [facility] Primary Indications:Transient Ischemic Attack Risk Factors Yes/No Hypertension No Diabetes No Hypercholesterolemia No Smoker Previous No Hx of TIA No Hx of CVA No Anticoagulants No Hx of CAD/PTCA No Previous Vascular Surgery No Impressions: Findings: Bilateral mid ICA has a severe, 60-79% stenosis. Recommendations: Test completed on 09/07/2016 at 10:55:00 am. Findings Carotid Duplex: Right: The right proximal common carotid artery has a PSV of 86 cm/s and a EDV of 23 cm/s. The right mid common carotid artery has a PSV of 90 cm/s and a EDV of 26 cm/s. The right distal common carotid artery has a PSV of 79 cm/s and a EDV of 24 cm/s. The right bifurcation has a PSV of 75 cm/s and a EDV of 22 cm/s. There is 40-59% stenosis in the right proximal internal carotid artery with a PSV of 123 cm/s and a EDV of 48 cm/s. There is 60-79% stenosis in the right mid internal carotid artery with a PSV of 152 cm/s and a EDV of 39 cm/s. There is 40-59% stenosis in the right distal internal carotid artery with a PSV of 113 cm/s and a EDV of 28 cm/s. The right eca has a PSV of 105 cm/s and a EDV of 17 cm/s. The right vertebral artery has a PSV of 61 cm/s and a EDV of 18 cm/s. Left: The left proximal common carotid artery has a PSV of 102 cm/s and a EDV of 24 cm/s. The left mid common carotid artery has a PSV of 83 cm/s and a EDV of 22 cm/s. The left distal common carotid artery has a PSV of 74 cm/s and a EDV of 21 cm/s. The left bifurcation has a PSV of 106 cm/s and a EDV of 20 cm/s. The left proximal internal carotid artery has a PSV of 83 cm/s and a EDV of 27 cm/s. There is 60-79% stenosis in the left mid internal carotid artery with a PSV of 135 cm/s and a EDV of 48 cm/s. The left distal internal carotid artery has a PSV of 102 cm/s and a EDV of 35 cm/s. The left eca has a PSV of 79 cm/s and a EDV of 12 cm/s. The left vertebral artery has a PSV of 45 cm/s and a EDV of 14 cm/s. Prior Study: No prior study available for comparison. Carotid Results Right PSV EDV Assessment Proximal CCA 86 23 Normal Mid CCA 90 26 Normal Distal CCA 79 24 Normal Bifurcation 75 22 Normal Proximal ICA 123 48 40-59% stenosis Mid ICA 152 39 60-79% stenosis Distal ICA 113 28 40-59% stenosis ECA 105 17 Normal Vertebral Artery 61 18 Normal Left PSV EDV Assessment Proximal CCA 102 24 Normal Mid CCA 83 22 Normal Distal CCA 74 21 Normal Bifurcation 106 20 Normal Proximal ICA 83 27 Normal Mid ICA 135 48 60-79% stenosis Distal ICA 102 35 Normal ECA 79 12 Normal Vertebral Artery 45 14 Normal Ratio's Right ICA/CCA Ratio: 1.69 ICA/CCA Values: 152/90 Left ICA/CCA Ratio: 1.63 ICA/CCA Values: 135/83 Updated by Kevin Simons MD, FACS on 09/08/2016 9:06:46 PM Kevin Simons MD electronically signed on 09/08/2016 9:07:08 PM with status of Final
== END 2016-09-08 16:17 | disposition home or self-care (01) ==
LOC: 2NENU 01:01 → EMEROO 01:01 → SUATTDRO 03:32 → 2NENU 03:46
PROVIDERS: ADMIT Internal Medicine; ATTEND Internal Medicine

== ENCOUNTER 2016-09-17 02:16 | Inpatient (IN) ==
[2016-09-17 03:00] LABS: Basophils # 0.1 K/mcL (0.0-0.2); Basophils % 0.7 %; Eosinophils # 0.4 K/mcL (0.0-0.6); Eosinophils % 5.7 %; Hematocrit 41.5 % (35.3-44.9); Hemoglobin 14.1 g/dL (11.5-15.4); Immature Granulocytes % 0.3 % (0-4); Lymphocytes # 2.6 K/mcL (0.6-4.6); Lymphocytes % 35.5 %; Mean Corpuscular Hemoglobin 29.4 pg (28.0-33.3); Mean Corpuscular Volume 86.6 fL (83.0-100.0); Mean Platelet Volume 11.2 fL (9.4-12.4); Monocytes # 0.5 K/mcL (0.0-1.3); Monocytes % 6.5 %; Neutrophils # 3.7 K/mcL (1.6-8.9); Platelet Count 170 K/mcL (140-400); Red Blood Count 4.79 M/mcL (3.82-4.97); Red Cell Distribution Width 13.4 % (11.5-14.5); Segmented Neutrophils % 51.3 %
[2016-09-17 03:05] LABS: INR 1.1; Prothrombin Time 11.9 Seconds (9.4-12.1)
[2016-09-17 03:08] LABS: Activated Partial Thrombo Time 34.1 Seconds (26.0-36.0)
[2016-09-17 03:13] LABS: BUN/Creatinine Ratio 19 (6-26); Blood Urea Nitrogen 14 mg/dL (7-20); Calcium 9.3 mg/dL (8.6-10.8); Carbon Dioxide 29 mEq/L (19-29); Chloride 107 mEq/L (98-109); Glucose 92 mg/dL (70-99); Osmolality,Calculated 290 (280-300); Potassium 3.8 mEq/L (3.5-4.5); Sodium 140 mEq/L (136-145); eGFR For African Americans > 60 (> 60); eGFR For Non-African Americans > 60 (> 60)
--- NOTE | 2016-09-17 04:06 | Emergency Department Note ---
Disposition Clinical Impression: Transient cerebral ischemia Qualifiers: Transient cerebral ischemia type: unspecified Qualified Code(s): G45.9 - Transient cerebral ischemic attack, unspecified Disposition: Admitted As Inpatient Condition: Fair Neuro HPI - General Chief Complaint: ED Neuro Symptoms/Deficit Stated Complaint: numbness in face arms hands knees down Time Seen by Provider: 09/17/16 02:24 Source: patient Limitations: no limitations Nursing Notes Reviewed: Yes Vital Signs Reviewed: Yes - History of Present Illness HPI Narrative: 66-year-old female presents with concerns of paresthesias to the left upper extremity and the left lower extremity and the left face. Patient states she was recently evaluated in the emergency department and admitted to the hospital for similar symptoms and diagnosed with a TIA. She states that she had an abnormal finding of her carotid artery evaluation which showed carotid artery stenosis of the bilateral carotid arteries between 60 and 80%. Patient denies recent injury, trauma, changes in her medication, fever, chills, nausea, vomiting. Patient states she woke with the symptoms appear aesthesias under extremities. Last time normal was 9:30 PM. Patient initially stated her symptoms started at 12:30 AM - Related Data Home Medications: Home Medications Medication Instructions Recorded Confirmed Aspirin [Lo-Dose Aspirin EC] 81 mg PO DAILY 09/07/16 09/07/16 Calcium Carbonate [Calcium] 500 mg PO DAILY 09/07/16 09/07/16 Ergocalciferol (VITAMIN D2) 400 unit PO DAILY 09/07/16 09/07/16 [Vitamin D] Previous Rx's Medication Instructions Recorded Acetaminophen [Tylenol] 650 mg PO Q6HR PRN tab 09/08/16 Atorvastatin [Lipitor] 40 mg PO HS #30 tab 09/08/16 Docusate [Colace] 100 mg PO BID PRN 09/08/16 Allergies/Adverse Reactions: Allergies Allergy/AdvReac Type Severity Reaction Status Date / Time oxybutynin Allergy Dizziness Verified 09/17/16 02:23 sulfamethoxazole Allergy Nausea Verified 09/17/16 02:23 [From Bactrim] trimethoprim [From Bactrim] Allergy Nausea Verified 09/17/16 02:23 All systems ED: reviewed and negative except as stated. Review of Systems: As Per HPI Past Medical History - Past Medical History Attestation: Yes The following information was validated with the patient. Source: patient Medical history: Reports: other Surgical history: Reports: appendectomy, cholecystectomy Psychiatric history: Reports: no psych history - Social History Smoking Status: Never smoker Alcohol use: Reports: none Drug use: Reports: none Physical Exam General: Alert and in no acute distress Skin: Warm, dry, intact Head: Normocephalic and atraumatic Neck: Supple, trachea midline and no tenderness Cardiovascular: RRR, no murmur, normal perfusion Respiratory: CTAB, no wheezing, cough, or respiratory distress Musculoskeletal: Normal strength, no tenderness, swelling or deformity GI: Soft, nontender, nondistended. Bowel sounds present Neuro: A&O to person, place, time and situation. No focal deficits noted on exam. Finger to nose testing and [id number] testing intact bilaterally. Cranial nerve exam intact to examination. No sensory deficits on exam. NIH 0 - General Limitations: no limitations General appearance: alert Course Vital Signs Temperature 97.5 F L 09/17/16 02:18 Pulse Rate 48 09/17/16 02:18 Respiratory Rate 16 09/17/16 02:18 Blood Pressure 129/75 09/17/16 02:18 O2 Sat by Pulse Oximetry 97 09/17/16 02:18 Temperature 97.5 F L 09/17/16 07:04 Pulse Rate 43 09/17/16 07:04 Respiratory Rate 16 09/17/16 07:04 Blood Pressure 103/55 09/17/16 07:04 O2 Sat by Pulse Oximetry 99 09/17/16 07:04 Oxygen Delivery Oxygen Delivery Room Air Neuro Symptoms/Deficit - MDM Narrative Medical decision making narrative: neurology evaluated the patient and agreed she did not qualify for TPA. Patient will be admitted to the hospitalists for further care and evaluation of TIA. - Medical Records Medical records reviewed: Yes I reviewed the patient's medical records. - Lab Data Lab results reviewed: Yes I reviewed the patient's lab results. Result diagrams: 09/17/16 02:48 09/17/16 02:48 Lab Results 09/17/16 09/17/16 09/17/16 Range/Units 02:27 02:48 02:48 WBC 7.2 (4.3-11.1) K/mcL RBC 4.79 (3.82-4.97) M/mcL Hgb 14.1 (11.5-15.4) g/dL Hct 41.5 (35.3-44.9) % MCV 86.6 (83.0-100.0) fL MCH 29.4 (28.0-33.3) pg MCHC 34.0 (31.6-35.5) g/dL RDW 13.4 (11.5-14.5) % Plt Count 170 (140-400) K/mcL MPV 11.2 (9.4-12.4) fL Immature Gran % 0.3 (0-4) % Seg Neutrophils % 51.3 % Lymphocytes % 35.5 % Monocytes % 6.5 % Eosinophils % 5.7 % Basophils % 0.7 % Neutrophils # 3.7 (1.6-8.9) K/mcL Lymphocytes # 2.6 (0.6-4.6) K/mcL Monocytes # 0.5 (0.0-1.3) K/mcL Eosinophils # 0.4 (0.0-0.6) K/mcL Basophils # 0.1 (0.0-0.2) K/mcL PT 11.9 (9.4-12.1) Seconds INR 1.1 APTT 34.1 (26.0-36.0) Seconds Sodium (136-145) mEq/L Potassium (3.5-4.5) mEq/L Chloride (98-109) mEq/L Carbon Dioxide (19-29) mEq/L BUN (7-20) mg/dL Creatinine (0.57-1.11) mg/dL Est GFR ( Amer) (> 60) Est GFR (Non-Af Amer) (> 60) BUN/Creatinine Ratio (6-26) Glucose (70-99) mg/dL POC Glucose 85 (58-89) Calculated Osmolality (280-300) Calcium (8.6-10.8) mg/dL Troponin I (0-0.03) ng/mL 09/17/16 09/17/16 Range/Units 02:48 02:48 WBC (4.3-11.1) K/mcL RBC (3.82-4.97) M/mcL Hgb (11.5-15.4) g/dL Hct (35.3-44.9) % MCV (83.0-100.0) fL MCH (28.0-33.3) pg MCHC (31.6-35.5) g/dL RDW (11.5-14.5) % Plt Count (140-400) K/mcL MPV (9.4-12.4) fL Immature Gran % (0-4) % Seg Neutrophils % % Lymphocytes % % Monocytes % % Eosinophils % % Basophils % % Neutrophils # (1.6-8.9) K/mcL Lymphocytes # (0.6-4.6) K/mcL Monocytes # (0.0-1.3) K/mcL Eosinophils # (0.0-0.6) K/mcL Basophils # (0.0-0.2) K/mcL PT (9.4-12.1) Seconds INR APTT (26.0-36.0) Seconds Sodium 140 (136-145) mEq/L Potassium 3.8 (3.5-4.5) mEq/L Chloride 107 (98-109) mEq/L Carbon Dioxide 29 (19-29) mEq/L BUN 14 (7-20) mg/dL Creatinine 0.72 (0.57-1.11) mg/dL Est GFR ( Amer) > 60 (> 60) Est GFR (Non-Af Amer) > 60 (> 60) BUN/Creatinine Ratio 19 (6-26) Glucose 92 (70-99) mg/dL POC Glucose (58-89) Calculated Osmolality 290 (280-300) Calcium 9.3 (8.6-10.8) mg/dL Troponin I 0.00 (0-0.03) ng/mL - Radiology Data Radiology results reviewed: Yes I reviewed the patient's radiology results. TPA Checklist - LKW: 3-4.5 hrs Add. Warnings/Precautions Patient/family understanding: The patient/family members have been counseled and understood the risk, benefit , and alternatives of treatment.
[2016-09-17] MEDS ORDERED: Acetaminophen 325 MG TABLET PO PRN (04:47)
[2016-09-17] MEDS ORDERED: Naloxone 0.4 MG/ML INJ IVP PRN (04:49)
--- NOTE | 2016-09-17 04:59 | Internal Med History&Physical ---
Date of Encounter: 09/17/16 Time of Encounter: 04:55 Assessment and Plan (1) TIA (transient ischemic attack) Current visit: No Status: Resolved Recurrent TIAs. Current TIA with persistent symptoms lasting more than 6 hours although not worsening. Admit inpatient for close monitoring and evolution. IV fluids, substitute aspirin with Plavix. Consider MRI in the morning if symptoms worsen or is prolonged. Neuro checks Qualifiers: Qualified Code(s): G45.9 - Transient cerebral ischemic attack, unspecified (2) Carotid stenosis, bilateral Current visit: No Status: Acute Seen by vascular surgery previously with plans for conservative management (3) Sinus bradycardia Current visit: No Status: Chronic Appears asymptomatic. Known history of sinus bradycardia. Monitor for now Internal Medicine - H&P: HPI Chief complaint: Left sided numbness History of present illness: Ms. Quiroz is a 66 year old female who presents with recurrent TIA symptoms. She was recently here and discharge after an initial TIA presentation. Evaluation then uncovered bilateral carotid artery stenosis 60-80% where she was evaluated by vascular surgery with recommendations for conservative management. She was discharged on aspirin, statin and did well. However last night starting at around 10-11 PM she initially developed in the left upper arm paresthesia within 15-30 minutes this progressed to left-sided lip numbness left -sided tongue numbness and left facial numbness. She also developed numbness in her left forearm and left leg from the knee downwards to the foot. She also reports subjective left leg weakness although she was able to ambulate and bring herself to the ER for evaluation. On my interview at about 5 AM, she tells me that her sensory symptoms are persistent but not worsened. CT head without contrast in the ER was negative for any hematoma or bleed and did not show acute change . Past Med Surg Social Fam HX - Past Medical History Medical history: other Psychiatric history: no psych history - Past Surgical History Surgical History: appendectomy, cholecystectomy - Social History Smoking Status: Never smoker Alcohol use: none Drug use: none - Family History Mother Hx Family Cardiac Disorders: Yes Brother Hx Family Cardiac Disorders: Yes Internal Medicine - H&P: Meds Aspirin [Lo-Dose Aspirin EC] 81 mg PO DAILY 09/07/16 [History] Calcium Carbonate [Calcium] 500 mg PO DAILY 09/07/16 [History] Ergocalciferol (VITAMIN D2) [Vitamin D] 400 unit PO DAILY 09/07/16 [History] Acetaminophen [Tylenol] 650 mg PO Q6HR PRN tab 09/08/16 [Rx] Atorvastatin [Lipitor] 40 mg PO HS #30 tab 09/08/16 [Rx] Docusate [Colace] 100 mg PO BID PRN 09/08/16 [Rx] Allergies oxybutynin Allergy (Verified 09/17/16 02:23) Dizziness sulfamethoxazole [From Bactrim] Allergy (Verified 09/17/16 02:23) Nausea trimethoprim [From Bactrim] Allergy (Verified 09/17/16 02:23) Nausea All Systems PM: A 10-system review of systems was performed and is negative for pertinent findings except as documented above in the HPI. Review of systems: ROS 14 point review of systems reviewed. Pertinent positive or negative as per HPI or otherwise reviewed as negative - Constitutional Vitals: Temp Pulse Resp BP Pulse Ox 97.5 F L 47 16 118/71 100 09/17/16 02:18 09/17/16 04:51 09/17/16 04:51 09/17/16 04:51 09/17/16 02:57 Exam: General - AAO x 3 Psych - Appropriate affect/speech. No agitation Eyes - TOMASA. Eye lids intact. No scleral icterus ENT - Oral mucosa pink, dentition intact. External ear clear/dry/intact. No thyromegaly Lymphatics - No cervical/inguinal lympadenopathy Neuro - numbness in the left face and left arm and left leg otherwise no gross peripheral motor deficit or central neuro deficits with intact CN 2-12 exam Heart - Sinus. RRR. S1 and S2 present. No added HS/murmurs appreciated. No elevated JVD appreciated. No calf swellings/erythema Lung - Adequate air entry b/l, No crackes/wheezes appreciated GI - Soft, non-tender. No hepatosplenomegaly/ascities. BS+ - No CVA/suprapubic tenderness or palpable bladder distension Skin - Intact. No rash/petechiae/ecchymosis. Warm extremities MSK - Joints with normal ROM. No joint swellings Internal Med - H&P Results - Labs CBC & Chem 7: 09/17/16 02:48 09/17/16 02:48
[2016-09-17] MEDS ORDERED: 0.9 % Sodium Chloride 1,000 ML IVC SCH (05:00)
[2016-09-17] MEDS ORDERED: *HR* Enoxaparin 40 MG/0.4 ML SYRINGE SQ SCH (06:00)
--- NOTE | 2016-09-17 11:03 | Discharge Summary ---
Date of Encounter: 09/17/16 Time of Encounter: 09:30 - Discharge Diagnosis (1) Paresthesias/numbness Priority: Primary Status: Acute Comments: Improved on day of discharge. Unknown causation at this time. Same symptoms as visit from 10 days ago. No acute CVA. MRI of brain negative 10 days ago- no indication to repeat MRI during this visit. Also exploring nutritional/ vitamin abnormalities and other potential causes. Further workup outpatient. Symptoms improved on day of discharge. (2) TIA (transient ischemic attack) Priority: Primary Status: Resolved Qualifiers: Qualified Code(s): G45.9 - Transient cerebral ischemic attack, unspecified (3) Sinus bradycardia Priority: Secondary Status: Chronic Comments: In review of her chart, patient has had bradycardia since 2012. Seen by cardiology during her visit 10 days ago, who surmised her chronic bradycardia was not likely associated to her current symptoms and cleared her for outpatient follow-up (4) DVT prophylaxis Priority: Primary Status: Acute Comments: Subcutaneous Lovenox while admitted (5) Carotid stenosis, bilateral Priority: Secondary Status: Chronic Comments: 60-79% bilaterally during her visit 10 days ago, seen by vascular surgery and cleared for outpatient follow-up. (6) Palpitations Priority: Secondary Status: Chronic Comments: Telemetry reviewed this visit and visit from 10 days ago. According to cardiology note from 10 days ago, at which her rate 55 with sinus bradycardia noted. No significant pauses. Telemetry reviewed during this visit, sinus bradycardia with frequent PVCs noted, single, nonsustained. Sending the patient home on a Holter monitor, will have her follow up outpatient (7) Insomnia Priority: Secondary Status: Chronic Comments: Patient states she has difficulty falling asleep despite the use of melatonin. States that she does not have hardly any sleep and states she is under increased stress at home with her mother staying there. Recommend outpatient sleep study. (8) Anxiety Priority: Secondary Status: Chronic - Discharge Medications Prescriptions: Clopidogrel [Plavix] 75 mg PO DAILY #30 tab Home Medications: Aspirin [Lo-Dose Aspirin EC] 81 mg PO DAILY 09/07/16 [History] Calcium Carbonate [Calcium] 500 mg PO DAILY 09/07/16 [History] Ergocalciferol (VITAMIN D2) [Vitamin D] 400 unit PO DAILY 09/07/16 [History] Acetaminophen [Tylenol] 650 mg PO Q6HR PRN tab 09/08/16 [Rx] Atorvastatin [Lipitor] 40 mg PO HS #30 tab 09/08/16 [Rx] Docusate [Colace] 100 mg PO BID PRN 09/08/16 [Rx] Clopidogrel [Plavix] 75 mg PO DAILY #30 tab 09/17/16 [Rx] Allergies/Adverse Reactions: Allergies oxybutynin Allergy (Verified 09/17/16 02:23) Dizziness sulfamethoxazole [From Bactrim] Allergy (Verified 09/17/16 02:23) Nausea trimethoprim [From Bactrim] Allergy (Verified 09/17/16 02:23) Nausea Date of admission: 09/17/16 04:52 Primary care physician: Rand West CNP Discharging clinician: Rosemarie Montalvo Anticipated date of discharge: 09/17/16 - Patient Status Disposition: Home, Self-Care Condition: Good Functional capacity at discharge: independent ambulation Overall status at discharge: patient is progressing back to baseline - Discharge Instructions Follow Up With: Rand West CNP [Primary Care Provider] - 09/25/16 10:00 am [facility] [Provider Group] Additional Instructions: Follow-up with primary care provider as scheduled, follow-up with cardiology within 1-2 weeks - Diet and Activity Activity: increase activity as tolerated Diet: regular diet Hospital course: Ms. Quiroz is a 66 year old female with no significant past medical history. Patient presented to the emergency department chief complaint of left arm paresthesias that after 15-30 minutes progressed in the left-sided lip numbness , left-sided tongue numbness, and left-sided facial numbness. Patient also then developed numbness in her left forearm and her left leg from the knee down. Of note, patient was seen on 09/07/16 for the same complaint. During that visit 10 days ago, patient had a brain MRI that was negative for acute processes, carotid ultrasound that revealed 60-79% stenosis bilaterally-she was seen by vascular surgery who felt surgical intervention was not indicated and recommended a repeat scan in 6 months, she also had an echocardiogram that was unremarkable with ejection fraction of 55-60%. She was then discharged on aspirin and statin and had been doing well at home until the night prior to presentation when she developed the aforementioned symptoms. During this visit , patient initially reported subjective left leg weakness although her gait was unaffected and her strength were 5 over 5 bilaterally. Workup in the emergency department unremarkable. Head CT negative. Stroke alert was called but was canceled. Patient was admitted to the hospitalist service for further evaluation and management. She was observed overnight. Patient stating she has had intermittent palpitations for the last month. She was seen by cardiology during her visit 10 days ago and they cleared her for outpatient follow-up. She has chronic bradycardia for several years. During this admission, her telemetry was reviewed with sinus bradycardia and frequent PVCs that were singular and nonsustained. We will send her home on a Holter monitor and have her follow up outpatient with her primary care provider and with her cane flume watcher. Patient's symptoms improved overnight. She had no focal neurological weakness is present on examination. She tolerated a regular diet. She continues to endorse mild numbness to the left side of her mouth and to her left hand but her symptoms were otherwise resolving. There is no indication to repeat an MRI during this visit. Routine blood work unremarkable thus far, additional blood work added for more expansive workup. B12, folate, TSH levels normal. Added levels for B1, DARRELL, ESR, hepatitis screening, Lyme disease, RF. She can follow-up with her primary care provider regarding these results. Also, patient stating that she does not sleep very much. She also states that she snores. Recommend outpatient sleep study. Patient also endorsed increased stress and anxiety in her life stating that her mother is living with her now and states that she feels as if she is running a residential. Her stress, lack of sleep, and anxiety could be playing a part, but will continue further investigation and outpatient workup as this would be a diagnosis of exclusion. Plavix was added to her regimen. She was anxious to go home on day of discharge. She was discharged home in stable condition with close outpatient follow-up with her primary care provider and her cane flume watcher recommended. ITS Impressions Head CT 09/17/16 02:36 IMPRESSION: No acute intracranial abnormality. Stroke alert results were called by Dr. Ruben Noel MD to Caden Shanks Jose Alejandro on 09/17/2016 at 03:06. D/ / Ruben Noel MD / Ruben Noel MD Interpreting Provider: Ruben Noel MD - Time Spent with Patient Total time spent providing and/or coordinating discharge services: - Constitutional Vitals: Temp Pulse Resp BP Pulse Ox 97.5 F L 43 16 103/55 99 09/17/16 07:04 09/17/16 07:04 09/17/16 07:04 09/17/16 07:04 09/17/16 07:04 General appearance: Present: A&O X 3, pleasant, no acute distress, answers questions appropriately - Head Head exam: Present: atraumatic, normocephalic - Eye Eye exam: Present: PERRL, conjuntiva pink, sclera anicteric Pupils: Present: PERRL - Neck Neck exam general surgery: Present: supple, trachea midline. Absent: lymphadenopathy - Respiratory Respiratory exam: Present: CTAB. Absent: accessory muscle use, rales, respiratory distress, rhonchi, wheezes - Cardiovascular Cardiovascular exam: Present: RRR, +S1, +S2. Absent: diastolic murmur, gallop, rubs, systolic murmur - GI/Abdominal GI/Abdominal exam: Present: normal bowel sounds, soft, no peritoneal signs. Absent: distended, tenderness - Extremities Exam Extremities exam: Present: warm, radial pulses palpable and symetrical. Absent : calf tenderness, cyanotic, pedal edema - Neurological Exam Neurological exam: Present: alert, CN II-XII intact, normal gait, oriented X3, no focal deficits, strengths equal and symetr throughout. Absent: pronater drift, facial droop, speech deficit - Expanded Neurological Exam Neurological exam expanded: Present: protecting the airway Patient oriented to: Present: person, place, time Speech: Present: fluid speech Cranial Nerves: EOM's intact PM: Normal, gag reflex PM: Normal Neuro motor strength exam: LUE: 5, RUE: 5, LLE: 5, RLE: 5 Coma Scale Eye Opening: Spontaneous Coma Scale Motor Response: Obeys Commands Coma Scale Verbal Response: Oriented Coma Scale Total: 15 - Psychiatric Psychiatric exam: Present: anxious - Skin Skin exam: Present: dry, intact, normal color, warm
[2016-09-17 11:20] VITALS: BP 105/50
--- NOTE | 2016-09-17 14:34 | Electrocardiograph Report ---
[place] [address] Test Date: 2016-09-17 Pat Name: Madeline Quiroz Department: 103 Room: 3B39 Gender: F Stamp Maker: MICHELLE : 1950 Requested By: Rosemarie Montalvo Order Number: [id number] Reading MD: Kaiser Nicole MD Measurements Intervals [place] Rate: 45 P: 41 IL: 138 QRS: 54 QRSD: 92 T: 42 QT: 489 QTc: 443 Interpretive Statements SINUS BRADYCARDIA Electronically Signed On 09-17-2016 14:33:24 EDT by Kaiser Nicole MD
[2016-09-17 16:11] LABS: Rheumatoid Factor < 15 IU/mL (0-29)
[2016-09-17 16:30] LABS: Hepatitis B Surface Antigen Nonreactive (Nonreactive)
[2016-09-18 11:28] LABS: Hepatitis C Virus Antibody Nonreactive (Nonreactive)
[2016-09-19 23:03] LABS: Alpha 2 Globulin (PEP) 0.62 g/dL (0.48-1.05)
[2016-09-20 08:12] LABS: IFE Reflexed NOT DONE
[2016-09-20 08:16] LABS: ANA IgG by ELISA NONE DETECTED (None Detected)
[2016-09-21 07:56] LABS: Vitamin B1 (Thiamine) Whole Bl 109 nmol/L (70-180)
--- NOTE | 2016-09-21 10:28 | Holter Monitor Report ---
[address] [place], [place] [address] Test Date: 2016-09-17 Pat Name: Madeline Quiroz Department: Room: 3B39 Gender: Package Worker: Elizabeth Trevino : 1950 Requested By: Rosemarie Montalvo Order Number: [id number] Reading MD: Kaiser Nicole MD Interpretive Statements [address] [place], [place] [address] Monitor Duration: 48 Indications: bradycardia Recording Time: 48:05 Time Analyzed: 47:41 Quality of Tracing: good Diary: yes Description of symptoms: yes ECG demonstrates: Totals: There were [id number] total beats, including ectopy. Average HR was 54. Minimum HR of 39 BPM occurred at 13:10D1 and maximum HR of 109 BPM occurred at 07:23D2. Ventricular Ectopy consisted of 1475 total beats averaging 30.9 beats per hour, 2 paired PVCs. There were 1311 single PVCs. 2 episodes of bigeminy, and 4 episodes of trigeminy. There were 0 runs of non-sustained VT. Supraventricular Ectopy consisted of 96 total beats averaging 2.0 per hour. There were 79 single PACs, 14 paired PACs, and 1 run of SVT. The longest and fastest was a 3 beat run with an average rate of 125 Bpm bpm at 08:55D3. There is 0 evidence of any pauses or bradycardia events. Impression: Rare ectopy Symptoms of palpitations and numbness correspond to sinus bradycardia HR 52. Other episodes of sinus bradycardia have no associated symptoms. Sharp chest pain correlates with sinus rhythm without diagnostic ischemia No arrhythmia symptom correlation Electronically Signed On 09-21-2016 5:57:24 EDT by Kaiser Nicole MD
== END 2016-09-17 14:05 | disposition home or self-care (01) | DRG 69 ==
LOC: EMEROO 02:16 → 3BNU 02:16
PROVIDERS: ADMIT Internal Medicine; ATTEND Nurse Practitioner Family

== ENCOUNTER 2016-09-24 04:31 | Observation (INO) ==
--- NOTE | 2016-09-24 04:55 | Emergency Department Note ---
Disposition Clinical Impression: Paresthesia of left upper extremity Chest pain Qualifiers: Chest pain type: other chest pain Qualified Code(s): R07.89 - Other chest pain Disposition: Admitted As Inpatient Condition: Good Chest Pain HPI - General Chief Complaint: ED Chest Pain Stated Complaint: tingling in face chest pain Time Seen by Provider: 09/24/16 04:40 Source: patient Mode of arrival: private vehicle Limitations: no limitations Vital Signs Reviewed: Yes Nursing Notes Reviewed: Yes - History of Present Illness HPI Narrative: 66-year-old female history of TIAs who presents to the ER with a chief complaint of chest pain and left hand numbness. Patient reports that she started having pain when she went to bed yesterday evening. She states that it would come and go but she woke up and was still having chest pain. She describes it as sharp pain over the left chest without radiation. No nausea vomiting diarrhea diaphoresis or syncopal episodes. She denies a prior history of cardiac disease. She takes aspirin and Plavix for the TIA. She was evaluated by cardiology during her last hospitalization however it was only for sinus bradycardia. No other complaints. Pt complaint: chest pain Onset (ago): hour(s) Duration: intermittent Onset: during rest Pain Location: left chest Severity: moderate Severity scale (1-10): 8 Quality: sharp Pain Radiation: none Improves with: nothing Worsens with: nothing Associated symptoms: Denies: nausea, vomiting, diaphoresis, dyspnea Treatments prior to arrival chest pain: none - Related Data On Oral Contraceptives: No Home Medications Medication Instructions Recorded Confirmed Aspirin [Lo-Dose Aspirin EC] 81 mg PO DAILY 09/07/16 09/24/16 Calcium Carbonate [Calcium] 500 mg PO DAILY 09/07/16 09/24/16 Ergocalciferol (VITAMIN D2) 400 unit PO DAILY 09/07/16 09/24/16 [Vitamin D] Polyethylene Glycol 3350 [MiraLAX] 17 gm PO DAILY PRN 09/24/16 09/24/16 Previous Rx's Medication Instructions Recorded Acetaminophen [Tylenol] 650 mg PO Q6HR PRN tab 09/08/16 Atorvastatin [Lipitor] 40 mg PO HS #30 tab 09/08/16 Clopidogrel [Plavix] 75 mg PO DAILY #30 tab 09/17/16 Allergies Allergy/AdvReac Type Severity Reaction Status Date / Time oxybutynin AdvReac Dizziness Verified 09/24/16 06:09 solifenacin [From Vesicare] AdvReac Dizziness Verified 09/24/16 06:09 sulfamethoxazole AdvReac Nausea Verified 09/24/16 06:09 [From Bactrim] trimethoprim [From Bactrim] AdvReac Nausea Verified 09/24/16 06:09 All systems ED: reviewed and negative except as stated. Constitutional: Denies: fever Cardiovascular: Reports: chest pain Respiratory: Denies: cough, dyspnea Gastrointestinal: Denies: abdominal pain, nausea, vomiting, diarrhea Musculoskeletal: Denies: neck pain Neurological: Reports: paresthesias Chest Pain PMH - Past Medical History Medical history: Reports: TIA, other Surgical history: Reports: appendectomy, cholecystectomy Psychiatric history: Reports: no psych history - Social History Smoking Status: Never smoker Alcohol use: Reports: none Drug use: Reports: none Physical Exam - General Limitations: no limitations General appearance: alert, in no apparent distress - Head Head exam: atraumatic, normocephalic, normal inspection - Eye Eye exam: Present: normal appearance, PERRL, EOMI - ENT ENT exam: normal exam - Neck Neck exam: Present: normal inspection, full ROM - Chest Chest inspection: Present: normal inspection, symmetric chest wall rise. Absent : tenderness - Respiratory Respiratory exam: Present: normal lung sounds bilaterally - Cardiovascular Cardiovascular exam: Present: regular rate, normal rhythm, normal heart sounds - Abdominal Exam Abdominal exam: Present: soft, Non-Tender. Absent: tenderness - Extremities Exam Extremities exam: Present: normal inspection, full ROM - Expanded Upper Extremity Exam Shoulder exam: Present: normal inspection, full ROM Arm exam: Present: normal inspection, full ROM Elbow exam: Present: normal inspection, full ROM Forearm/Wrist exam: Present: normal inspection, full ROM Hand exam: Present: normal inspection, full ROM, other (Paresthesias to the thenar eminence of the right hand) Vascular exam: Normal: capillary refill, radial pulse - Expanded Lower Extremity Exam Hip/Pelvis exam: Present: normal inspection, full ROM Upper leg exam: Present: normal inspection, full ROM Knee exam: Present: normal inspection, full ROM Lower leg exam: Present: normal inspection, full ROM Ankle exam: Present: normal inspection, full ROM Foot/toe exam: Present: normal inspection, full ROM - Neurological Exam Neurological exam: Present: alert, oriented X3, CN II-XII intact - Expanded Neurological Exam Patient oriented to: Present: person, place, time Speech: Present: fluid speech Cranial nerves: EOM function (II, III, IV, ): Normal, facial sensation (V): Normal, spinal accessory function (XI): Normal, tongue deviation (XII): Normal Motor strength - LUE: 5/5 Motor strength - RUE: 5/5 Motor strength - LLE: 5/5 Motor strength - RLE: 5/5 Sensory exam upper extremity: light touch: Abnormal Left Sensory exam lower extremity: light touch: Normal Coma Scale Eye Opening: Spontaneous Coma Scale Motor Response: Obeys Commands Coma Scale Verbal Response: Oriented Coma Scale Total: 15 - Psychiatric Psychiatric exam: Present: normal affect, normal mood - Skin Skin exam: Present: warm, dry, intact, normal color Course Course Narrative: Patient seen and examined. Vital signs reviewed. I reviewed her previous evaluations and admissions for similar symptoms of her paresthesias. She also was evaluated by cardiology during her hospitalization for bradycardia area at this appears to be a long-standing issue with her. Plan for patient is an EKG, chest x-ray as well as labs including troponin. Vital Signs Temperature 97.5 F L 09/24/16 04:33 Pulse Rate 48 09/24/16 04:33 Respiratory Rate 18 09/24/16 04:33 Blood Pressure 118/78 09/24/16 04:33 O2 Sat by Pulse Oximetry 100 09/24/16 04:33 Temperature 97.6 F 09/24/16 12:45 Pulse Rate 58 09/24/16 12:45 Respiratory Rate 15 09/24/16 12:45 Blood Pressure 113/76 09/24/16 12:45 O2 Sat by Pulse Oximetry 100 09/24/16 12:45 Oxygen Delivery Oxygen Delivery Room Air Chest Pain - MDM Narrative Medical decision making narrative: 66-year-old female presents to the ER due to left hand paresthesias as well as chest pain. Patient medical record reviewed which shows multiple admissions for TIAs. She was found bradycardic at that time and was seen by cardiology. No interventions were recommended at that time. Today the chest pain is new compared to her prior injuries. No other symptoms. Her EKG is nonischemic. Chest x-ray unremarkable. Labwork shows no acute abnormality to suggest an etiology of her pain. Patient admitted to the hospital service for further management. - Lab Data Lab results reviewed: Yes I reviewed the patient's lab results. Result diagrams: 09/24/16 05:45 09/24/16 05:45 Lab Results 09/24/16 09/24/16 09/24/16 Range/Units 05:45 05:45 05:45 WBC 6.2 (4.3-11.1) K/mcL RBC 4.58 (3.82-4.97) M/mcL Hgb 13.5 (11.5-15.4) g/dL Hct 40.3 (35.3-44.9) % MCV 88.0 (83.0-100.0) fL MCH 29.5 (28.0-33.3) pg MCHC 33.5 (31.6-35.5) g/dL RDW 13.2 (11.5-14.5) % Plt Count 159 (140-400) K/mcL MPV 11.1 (9.4-12.4) fL Immature Gran % 0.3 (0-4) % Seg Neutrophils % 51.7 % Lymphocytes % 33.8 % Monocytes % 7.9 % Eosinophils % 5.5 % Basophils % 0.8 % Neutrophils # 3.2 (1.6-8.9) K/mcL Lymphocytes # 2.1 (0.6-4.6) K/mcL Monocytes # 0.5 (0.0-1.3) K/mcL Eosinophils # 0.3 (0.0-0.6) K/mcL Basophils # 0.1 (0.0-0.2) K/mcL Reactive Lymphocytes Present A (Not Present) Platelet Estimate Normal (Normal) Sodium 138 (136-145) mEq/L Potassium 3.9 (3.5-4.5) mEq/L Chloride 107 (98-109) mEq/L Carbon Dioxide 26 (19-29) mEq/L BUN 12 (7-20) mg/dL Creatinine 0.76 (0.57-1.11) mg/dL Est GFR ( Amer) > 60 (> 60) Est GFR (Non-Af Amer) > 60 (> 60) BUN/Creatinine Ratio 16 (6-26) Glucose 85 (70-99) mg/dL Calculated Osmolality 285 (280-300) Calcium 9.4 (8.6-10.8) mg/dL Troponin I (0-0.03) ng/mL B-Natriuretic Peptide 49 (0-100) pg/mL 09/24/16 Range/Units 05:45 WBC (4.3-11.1) K/mcL RBC (3.82-4.97) M/mcL Hgb (11.5-15.4) g/dL Hct (35.3-44.9) % MCV (83.0-100.0) fL MCH (28.0-33.3) pg MCHC (31.6-35.5) g/dL RDW (11.5-14.5) % Plt Count (140-400) K/mcL MPV (9.4-12.4) fL Immature Gran % (0-4) % Seg Neutrophils % % Lymphocytes % % Monocytes % % Eosinophils % % Basophils % % Neutrophils # (1.6-8.9) K/mcL Lymphocytes # (0.6-4.6) K/mcL Monocytes # (0.0-1.3) K/mcL Eosinophils # (0.0-0.6) K/mcL Basophils # (0.0-0.2) K/mcL Reactive Lymphocytes (Not Present) Platelet Estimate (Normal) Sodium (136-145) mEq/L Potassium (3.5-4.5) mEq/L Chloride (98-109) mEq/L Carbon Dioxide (19-29) mEq/L BUN (7-20) mg/dL Creatinine (0.57-1.11) mg/dL Est GFR ( Amer) (> 60) Est GFR (Non-Af Amer) (> 60) BUN/Creatinine Ratio (6-26) Glucose (70-99) mg/dL Calculated Osmolality (280-300) Calcium (8.6-10.8) mg/dL Troponin I 0.00 (0-0.03) ng/mL B-Natriuretic Peptide (0-100) pg/mL - Radiology Data Radiology results reviewed: Yes I reviewed the patient's radiology results. Chest X-Ray 09/24/16 04:59 IMPRESSION: No acute cardiopulmonary abnormality appreciated. D/ / Kevin Iniguez MD / Kevin Iniguez MD Interpreting Provider: Kevin Iniguez MD - EKG Data EKG attestation: Yes I reviewed and interpreted this EKG. EKG results narrative: EKG demonstrates sinus bradycardia with a rate of 47 beats per minute. Normal axis. Normal intervals. No ST elevations or depressions. No acute ischemic findings. No significant changes from previous EKG dated 09/17/16. Heart Score - Score History: Slightly Suspicious EKG: Normal Age: 45-65 Risk Factors: No risk factors known Troponin: Less than normal limit HEART Score Total: 1 S.B.A.R. - S.B.A.R. Situation: Demographics, MOA Background: Presenting Complaint, Relevant PMH, Meds, & Allergies Assessment: Vital Signs, Course and respsone to treatment, Exam Concerns, Patient/Family Expectation, Pertinant Lab Results, Outstanding Labs S.B.A.R. Report Given to: Dr. Rose Ambrose Repor Time: 07:12 (requests nitro) Attestation Statement - Attestation Attestation: I, Eron Mike MD, personally evaluated this patient and discussed their management with the resident physician. I reviewed the resident's note and agree with the documented findings, medical decision making, and plan of care. 66-year-old female presents to the emergency department with a complaint of some left-sided chest pain which started last evening before going to bed. She reports that she went to bed and was able to go to sleep but then awoke about 4 AM and was still having the left-sided chest pain. No radiation of the pain. No nausea or vomiting or diaphoresis. No shortness of breath. No palpitations. Patient also complains of some numbness and tingling in the left side of her lips and face which has been intermittent for several weeks. She has been admitted here twice in the past 2 weeks for these symptoms and had a complete workup. On examination patient is a well-developed well-nourished well-appearing elderly female in no acute distress. She is alert and oriented 3. There is no cyanosis or diaphoresis. Chest is nontender to palpation. Breath sounds are clear and equal bilaterally. Heart regular and bradycardic. Abdomen soft and nontender with normal bowel sounds. EKG shows a sinus bradycardia with no acute changes. Labs reviewed. Troponin negative. Chest x-ray negative. The hospitalist, Dr. Rose, was consulted and accepted admission of the patient.
[2016-09-24 05:57] LABS: Basophils # 0.1 K/mcL (0.0-0.2); Basophils % 0.8 %; Eosinophils # 0.3 K/mcL (0.0-0.6); Eosinophils % 5.5 %; Hematocrit 40.3 % (35.3-44.9); Hemoglobin 13.5 g/dL (11.5-15.4); Immature Granulocytes % 0.3 % (0-4); Lymphocytes # 2.1 K/mcL (0.6-4.6); Lymphocytes % 33.8 %; Mean Corpuscular HGB Conc 33.5 g/dL (31.6-35.5); Mean Corpuscular Hemoglobin 29.5 pg (28.0-33.3); Mean Platelet Volume 11.1 fL (9.4-12.4); Monocytes # 0.5 K/mcL (0.0-1.3); Monocytes % 7.9 %; Neutrophils # 3.2 K/mcL (1.6-8.9); Platelet Count 159 K/mcL (140-400); Red Blood Count 4.58 M/mcL (3.82-4.97); Red Cell Distribution Width 13.2 % (11.5-14.5); Segmented Neutrophils % 51.7 %
[2016-09-24 06:10] LABS: BUN/Creatinine Ratio 16 (6-26); Blood Urea Nitrogen 12 mg/dL (7-20); Calcium 9.4 mg/dL (8.6-10.8); Carbon Dioxide 26 mEq/L (19-29); Chloride 107 mEq/L (98-109); Glucose 85 mg/dL (70-99); Osmolality,Calculated 285 (280-300); Potassium 3.9 mEq/L (3.5-4.5); Sodium 138 mEq/L (136-145); eGFR For African Americans > 60 (> 60); eGFR For Non-African Americans > 60 (> 60)
[2016-09-24] MEDS ORDERED: Aspirin 81 MG TAB.CHEW PO ONE (06:14)
[2016-09-24 06:18] LABS: Platelet Estimate Normal (Normal); Reactive Lymphocytes Present (Not Present)
[2016-09-24] MEDS ORDERED: Nitroglycerin 0.4 MG TAB.SUBL SL PRN ×2 (07:11→07:39)
[2016-09-24] MEDS ORDERED: Ondansetron 4 MG/2 ML VIAL IVP PRN (07:37)
[2016-09-24] MEDS ORDERED: Naloxone 0.4 MG/ML INJ IVP PRN (07:37)
[2016-09-24] MEDS ORDERED: *HR* Morphine 2 MG/ML SYRINGE IVP PRN (07:37)
[2016-09-24] MEDS ORDERED: Acetaminophen 325 MG TABLET PO PRN (07:37)
[2016-09-24] MEDS ORDERED: Ipratropium/Albuterol Neb 3 ML IH PRN (07:39)
[2016-09-24] MEDS ORDERED: *HR* Enoxaparin 40 MG/0.4 ML SYRINGE SQ SCH (07:39)
--- NOTE | 2016-09-24 07:42 | Internal Med History&Physical ---
Date of Encounter: 09/24/16 Time of Encounter: 07:40 Assessment and Plan (1) Chest pain Current visit: Yes Status: Acute Continue telemetry, follow troponins Morphine and nitroglycerin as needed Schedule a stress test, continue aspirin and Plavix, Lipitor, check lipid panel Consider cardiology consult if positive findings Omeprazole for GI prophylaxis and Lovenox for the deep prophylaxis. Patient will be admitted for observation. Full code. Time spent on this admission 40 minutes. Qualifiers: Chest pain type: other chest pain Qualified Code(s): R07.89 - Other chest pain; R07.8 - Other chest pain (2) Paresthesia of left upper extremity Current visit: Yes Status: Acute Similar symptoms on her prior admissions where she was evaluated extensively for TIAs (3) Anxiety Current visit: No Status: Chronic (4) Carotid stenosis, bilateral Current visit: No Status: Chronic Followed as an outpatient (5) Sinus bradycardia Current visit: No Status: Chronic Holter monitor results needs to be reviewed Internal Medicine - H&P: HPI Chief complaint: Chest pain Admitted From: Emergency Dept History of present illness: Ms. Quiroz is a 66 year old female with a past medical history of multiple TIAs who had multiple admissions for these reasons in the past months, sinus bradycardia, carotid stenosis, anxiety into the emergency room complaining of left-sided chest pain pressure-like and stabbing like with no radiation 8 out of 10 in intensity on and off that got worse at 4 AM. Patient says that the pain has subsided after some nitroglycerin. EKG and troponins are negative. The patient's heart rate has been low for a long time currently is 42 but she says she does not have any new symptoms such as dizziness or more fatigued. She has been complaining of tingling on her lips left upper and lower extremities very similar to the symptoms she had during her past admissions. She has had extensive workup and her diagnosis was TIA. Denies any other complaints. Patient had a recent Holter, the results need to be reviewed Past Med Surg Social Fam HX - Past Medical History Medical history: TIA, other (Hyperlipidemia, sinus bradycardia, current to stenosis 60-79% bilaterally been followed as an outpatient by vascular surgery, anxiety) Psychiatric history: no psych history - Past Surgical History Surgical History: appendectomy, cholecystectomy, other (Carpal tunnel syndrome surgery, sinus surgery and tonsillectomy) - Social History Smoking Status: Never smoker Alcohol use: none Drug use: none - Family History Mother Hx Family Cardiac Disorders: Yes (Pacemaker) Brother Hx Family Cardiac Disorders: Yes Father Hx Family Neurologic Disorders: Yes (TIA) - Additional Family History Additional family history: Mother and brother with heart disease Internal Medicine - H&P: Meds Aspirin [Lo-Dose Aspirin EC] 81 mg PO DAILY 09/07/16 [History] Calcium Carbonate [Calcium] 500 mg PO DAILY 09/07/16 [History] Ergocalciferol (VITAMIN D2) [Vitamin D] 400 unit PO DAILY 09/07/16 [History] Acetaminophen [Tylenol] 650 mg PO Q6HR PRN tab 09/08/16 [Rx] Atorvastatin [Lipitor] 40 mg PO HS #30 tab 09/08/16 [Rx] Clopidogrel [Plavix] 75 mg PO DAILY #30 tab 09/17/16 [Rx] Polyethylene Glycol 3350 [MiraLAX] 17 gm PO DAILY PRN 09/24/16 [History] Allergies oxybutynin Adverse Reaction (Verified 09/24/16 06:09) Dizziness solifenacin [From Vesicare] Adverse Reaction (Verified 09/24/16 06:09) Dizziness sulfamethoxazole [From Bactrim] Adverse Reaction (Verified 09/24/16 06:09) Nausea trimethoprim [From Bactrim] Adverse Reaction (Verified 09/24/16 06:09) Nausea All Systems PM: A 10-system review of systems was performed and is negative for pertinent findings except as documented above in the HPI. Review of systems: No shortness of breath, not abdominal pain, numbness persists. Other systems out of the 10 review were negative - Constitutional Vitals: Temp Pulse Resp BP Pulse Ox 97.5 F L 42 16 109/42 99 09/24/16 04:33 09/24/16 06:13 09/24/16 06:13 09/24/16 06:13 09/24/16 06:13 General appearance: Present: A&O X 3 - Head Head exam: Present: atraumatic, normocephalic - Eye Eye exam: Present: PERRL, conjuntiva pink, sclera anicteric Pupils: Present: PERRL - Neck Neck exam general surgery: Present: supple, trachea midline. Absent: lymphadenopathy - Respiratory Respiratory exam: Present: CTAB. Absent: accessory muscle use, rales, rhonchi, wheezes - Cardiovascular Cardiovascular exam: Present: bradycardia, RRR, +S1, +S2. Absent: diastolic murmur, gallop, rubs, systolic murmur - GI/Abdominal GI/Abdominal exam: Present: normal bowel sounds, soft, no peritoneal signs. Absent: distended, tenderness - Extremities Exam Extremities exam: Present: warm, radial pulses palpable and symetrical. Absent : calf tenderness, cyanotic, pedal edema - Neurological Exam Neurological exam: Present: CN II-XII intact, oriented X3, no focal deficits. Absent: pronater drift, facial droop, speech deficit - Skin Skin exam: Present: dry, intact Internal Med - H&P Results - Labs CBC & Chem 7: 09/24/16 05:45 09/24/16 05:45
[2016-09-24] MEDS ORDERED: 0.9 % Sodium Chloride 1,000 ML IVC SCH (07:45)
[2016-09-24] MEDS ORDERED: Regadenoson 0.4 MG/5 ML SYRINGE IVP ONE (08:26)
[2016-09-24] MEDS ORDERED: Aspirin Enteric Coated 81 MG Tablet PO SCH (09:00)
[2016-09-24 12:49] VITALS: BP 113/76
--- NOTE | 2016-09-24 13:07 | Nuclear Medicine Stress Report ---
Low Level Regadenoson Name: Madeline Quiroz Date of Study: 09/24/2016 Date: 1950 Ht: 61.0 in Medical Record#: [id number] Age: 66 Wt: 140.0 lb Gender: Female Order #: [id number] Location: [facility] Room: [facility] Supervising Provider: Rajwinder Anderson CNP Reading Physician: Juany Evans DO Ordering Physician: Saumya Tuttle CNP Primary Care Physician: Rand West CNP Stress Technologist: Doug Dowell CRT Tractor Distributor: Alessandro Chapa Indications: Chest Pain Impression: Perfusion imaging was negative for ischemia or infarct. Low level exercise ECG was non-diagnostic for ischemia. Gated EF = >70%. History: Hypercholesteremia Stress Test Summary: Stress Test Type: Low level pharmacologic Regadenoson 0.4mg/5ml given IV Baseline Information: Initial Heart Rate: 49 Blood Pressure: 108/70 Stress Information: Test Terminated Due to (primary): As per protocol Maximum Blood Pressure: 124/74 Maximum Heart Rate: 129 Percent Maximum Heart Rate Achieved: 83 Double Product: 10627 METS Reached: 2.1 Symptoms: Shortness of breath Nuclear Summary: SPECT myocardial perfusion imaging using Tc99m Sestamibi given intravenously was performed at rest and following cardiac stress testing. The resting images were obtained following initial dose of 11.1 mCi. Following stress an additional dose of 35.3 mCi was given at peak exercise or 30 seconds post regadenoson infusion. Medication Given: Time Medication Dose Units Route Findings: Stress Note * Baseline ECG demonstrates sinus bradycardia, HR [address] abnormalities suggestive of early repolarization. Heart rates increase with exercise, max heart rate 1 29 bpm. * Low level exercise/pharmacologic stress ECG is non-diagnostic for ischemia due to baseline ST changes. * Patient had no chest pain during stress. She had chest pain prior to stress which resolved with exercise. * No arrhythmias were noted during stress. Hemodynamic responses * Adequate hemodynamic responses to low level exercise plus pharmacologic stress. Study Quality * Study quality is good. Gated EF > 70% * Gated EF > 70%. Left Ventricle * The left ventricle is not dilated. TID * No evidence of transient ischemic dilatation. Lung Uptake * There is no evidence of increase lung uptake. NORMALS * Normal wall motion. * Normal segmental perfusion in stress. * Normal Segmental Perfusion in rest. Updated by Juany Evans on 09/24/2016 12:59:26 PM electronically signed on 09/24/2016 1:00:40 PM with status of Final
--- NOTE | 2016-09-24 14:11 | Discharge Summary ---
Date of Encounter: 09/24/16 Time of Encounter: 14:08 - Discharge Diagnosis (1) Chest pain Priority: Primary Status: Acute Comments: Likely related to anxiety Qualifiers: Chest pain type: other chest pain Qualified Code(s): R07.89 - Other chest pain; R07.8 - Other chest pain (2) Paresthesia of left upper extremity Priority: Primary Status: Acute (3) Anxiety Priority: Secondary Status: Chronic (4) Carotid stenosis, bilateral Priority: Secondary Status: Chronic (5) Sinus bradycardia Priority: Secondary Status: Chronic - Discharge Medications Home Medications: Aspirin [Lo-Dose Aspirin EC] 81 mg PO DAILY 09/07/16 [History] Calcium Carbonate [Calcium] 500 mg PO DAILY 09/07/16 [History] Ergocalciferol (VITAMIN D2) [Vitamin D] 400 unit PO DAILY 09/07/16 [History] Acetaminophen [Tylenol] 650 mg PO Q6HR PRN tab 09/08/16 [Rx] Atorvastatin [Lipitor] 40 mg PO HS #30 tab 09/08/16 [Rx] Clopidogrel [Plavix] 75 mg PO DAILY #30 tab 09/17/16 [Rx] Polyethylene Glycol 3350 [MiraLAX] 17 gm PO DAILY PRN 09/24/16 [History] Allergies/Adverse Reactions: Allergies oxybutynin Adverse Reaction (Verified 09/24/16 06:09) Dizziness solifenacin [From Vesicare] Adverse Reaction (Verified 09/24/16 06:09) Dizziness sulfamethoxazole [From Bactrim] Adverse Reaction (Verified 09/24/16 06:09) Nausea trimethoprim [From Bactrim] Adverse Reaction (Verified 09/24/16 06:09) Nausea Procedures/tests Complete & Pending: Procedures Performed prior 72 hours Category Date Time Status NM gregor perf SPECT multi [NM] Routine Exams 09/24/16 07:36 Taken SP pharm nuclear stress Routine Y 09/24/16 07:36 Completed Date of admission: 09/24/16 07:30 Primary care physician: Rand West CNP - Patient Status Disposition: Home, Self-Care Condition: Good Overall status at discharge: patient is back to baseline - Discharge Instructions Follow Up With: Rand West CNP [Primary Care Provider] - Additional Instructions: Follow-up with primary care physician within the next 7 days. Follow up with cardiology within the next 2 weeks. Continue aspirin and Plavix - Diet and Activity Activity: increase activity as tolerated Diet: low fat, low cholesterol Hospital course: Ms. Quiroz is a 66 year old female with a past medical history of multiple TIAs who had multiple admissions for these reasons in the past months, sinus bradycardia, carotid stenosis, anxiety, came to the emergency room complaining of left-sided chest pain pressure-like and stabbing like with no radiation 8 out of 10 in intensity on and off that got worse at 4 AM. Patient says that the pain has subsided after some nitroglycerin. EKG and troponins were negative. The patient's heart rate has been low for a long time currently is 42 but she says she does not have any new symptoms such as dizziness or more fatigued. She has been complaining of tingling on her lips left upper and lower extremities very similar to the symptoms she had during her past admissions. She has had extensive workup and her diagnosis was TIA. Denies any other complaints. Patient had a recent Holter, that showed sinus ready cardia and rare ectopy. Next The patient underwent a stress test that showed no ischemia, ejection fraction was 70%. All of her symptoms have subsided. Xanax was offered as the patient has been very anxious but he prefers not to take anything at the moment. The option was given to stay another day but she prefers to go home at the moment. - Time Spent with Patient Total time spent providing and/or coordinating discharge services: Greater than 30 minutes (40 minutes) - Constitutional Vitals: Temp Pulse Resp BP Pulse Ox 97.6 F 58 15 113/76 100 09/24/16 12:45 09/24/16 12:45 09/24/16 12:45 09/24/16 12:45 09/24/16 12:45 General appearance: Present: A&O X 3 - Head Head exam: Present: atraumatic, normocephalic - Eye Eye exam: Present: PERRL, conjuntiva pink, sclera anicteric Pupils: Present: PERRL - Neck Neck exam general surgery: Present: supple, trachea midline. Absent: lymphadenopathy - Respiratory Respiratory exam: Present: CTAB. Absent: accessory muscle use, rales, rhonchi, wheezes - Cardiovascular Cardiovascular exam: Present: RRR, +S1, +S2. Absent: diastolic murmur, gallop, rubs, systolic murmur - GI/Abdominal GI/Abdominal exam: Present: normal bowel sounds, soft, no peritoneal signs. Absent: distended, tenderness - Extremities Exam Extremities exam: Present: warm, radial pulses palpable and symetrical. Absent : calf tenderness, cyanotic, pedal edema - Neurological Exam Neurological exam: Present: CN II-XII intact, oriented X3, no focal deficits. Absent: pronater drift, facial droop, speech deficit - Skin Skin exam: Present: dry, intact
--- NOTE | 2016-09-25 07:48 | Electrocardiograph Report ---
[address] [address] Test Date: 2016-09-24 Pat Name: Madeline Quiroz Department: 105 Room: 3B24 Gender: F Value Engineer: WILLIAM : 1950 Requested By: Etienne Lauren Order Number: [id number] Reading MD: Kaiser Nicole MD Measurements Intervals [place] Rate: 47 P: 34 AR: 123 QRS: 54 QRSD: 93 T: 42 QT: 455 QTc: 418 Interpretive Statements SINUS BRADYCARDIA BASELINE ARTIFACT Electronically Signed On 09-24-2016 19:57:26 EDT by Kaiser Nicole MD
== END 2016-09-24 15:03 | disposition home or self-care (01) ==
LOC: 3BNU 04:31 → EMEROO 04:31 → 3BNU 08:27
PROVIDERS: ADMIT Registered Nurse; ATTEND Registered Nurse

== ENCOUNTER 2019-12-03 18:19 | Observation (INO) ==
[2019-12-03] MEDS ORDERED: Pantoprazole 40 MG VIAL IVP ONE ×2 (18:50→22:31)
[2019-12-03] MEDS ORDERED: Aspirin 81 MG TAB.CHEW PO ONE (18:50)
[2019-12-03] MEDS ORDERED: Ondansetron 4 MG/2 ML VIAL IVP ONE (18:50)
[2019-12-03] MEDS ORDERED: Nitroglycerin 0.4 MG TAB.SUBL SL PRN (18:50)
[2019-12-03 19:06] LABS: Basophils # 0.1 K/mcL (0.0-0.2); Basophils % 0.9 %; Eosinophils # 0.5 K/mcL (0.0-0.6); Eosinophils % 8.1 %; Hematocrit 42.1 % (35.3-44.9); Hemoglobin 13.9 g/dL (11.5-15.4); Immature Granulocytes % 0.3 % (0-4); Lymphocytes # 2.5 K/mcL (0.6-4.6); Mean Corpuscular Hemoglobin 29.4 pg (28.0-33.3); Mean Corpuscular Volume 89.2 fL (83.0-100.0); Mean Platelet Volume 11.4 fL (9.4-12.4); Monocytes # 0.4 K/mcL (0.0-1.3); Monocytes % 6.1 %; Neutrophils # 3.1 K/mcL (1.6-8.9); Platelet Count 164 K/mcL (140-400); Red Blood Count 4.72 M/mcL (3.82-4.97); Red Cell Distribution Width 13.7 % (11.5-14.5); Segmented Neutrophils % 46.6 %; White Blood Count 6.6 K/mcL (4.3-11.1)
[2019-12-03 19:10] LABS: INR 1.1; Prothrombin Time 13.1 Seconds (9.4-12.1)
[2019-12-03 19:13] LABS: Activated Partial Thrombo Time 34.6 Seconds (26.0-36.0)
[2019-12-03 19:27] LABS: BUN/Creatinine Ratio 18 (6-26); Blood Urea Nitrogen 13 mg/dL (8-23); Calcium 9.4 mg/dL (8.6-10.3); Carbon Dioxide 28 mEq/L (23-29); Chloride 103 mEq/L (98-107); Glucose 97 mg/dL (70-105); Osmolality,Calculated 286 (280-300); Potassium 3.7 mEq/L (3.5-5.1); Sodium 138 mEq/L (136-145); eGFR For African Americans > 60 (> 60); eGFR For Non-African Americans > 60 (> 60)
[2019-12-03 19:28] LABS: Troponin I < 0.03 ng/mL (< 0.04)
[2019-12-03] MEDS ORDERED: Isovue-370 500 ML BOTTLE IVP ONE (20:13)
[2019-12-03] MEDS ORDERED: Ondansetron 4 MG/2 ML VIAL IVP PRN (21:20)
[2019-12-03] MEDS ORDERED: Naloxone 0.4 MG/ML INJ IVP PRN (21:20)
[2019-12-04 01:14] LABS: Basophils # 0.1 K/mcL (0.0-0.2); Basophils % 0.7 %; Eosinophils # 0.5 K/mcL (0.0-0.6); Eosinophils % 7.1 %; Hematocrit 37.6 % (35.3-44.9); Hemoglobin 12.6 g/dL (11.5-15.4); Immature Granulocytes % 0.1 % (0-4); Lymphocytes # 2.5 K/mcL (0.6-4.6); Lymphocytes % 36.6 %; Mean Corpuscular HGB Conc 33.5 g/dL (31.6-35.5); Mean Corpuscular Hemoglobin 29.9 pg (28.0-33.3); Mean Corpuscular Volume 89.1 fL (83.0-100.0); Mean Platelet Volume 11.5 fL (9.4-12.4); Monocytes # 0.5 K/mcL (0.0-1.3); Monocytes % 6.6 %; Neutrophils # 3.3 K/mcL (1.6-8.9); Platelet Count 148 K/mcL (140-400); Red Blood Count 4.22 M/mcL (3.82-4.97); Red Cell Distribution Width 13.8 % (11.5-14.5); Segmented Neutrophils % 48.9 %; White Blood Count 6.8 K/mcL (4.3-11.1)
[2019-12-04 01:32] LABS: Alanine Aminotransferase 14 Units/L (7-52); Albumin 3.6 g/dL (3.5-5.7); Albumin/Globulin Ratio 1.7 (1.1-2.2); Alkaline Phosphatase 72 Units/L (34-104); Aspartate Amino Transferase 17 Units/L (13-39); BUN/Creatinine Ratio 17 (6-26); Bilirubin,Total 0.5 mg/dL (0.3-1.0); Blood Urea Nitrogen 11 mg/dL (8-23); Calcium 8.9 mg/dL (8.6-10.3); Carbon Dioxide 24 mEq/L (23-29); Chloride 108 mEq/L (98-107); Globulin 2.1 g/dL (2.4-3.5); Glucose 102 mg/dL (70-105); Osmolality,Calculated 284 (280-300); Potassium 3.7 mEq/L (3.5-5.1); Sodium 137 mEq/L (136-145); Total Protein 5.7 g/dL (6.4-8.9); eGFR For African Americans > 60 (> 60); eGFR For Non-African Americans > 60 (> 60)
[2019-12-04] MEDS: Aspirin Enteric Coated 81 MG Tablet PO SCH (09:19)
[2019-12-04] MEDS ORDERED: Perflutren Lipid Microsphere 1.3 ML in 0.9 % Sodium Chloride 8.7 ML IVP PRN (09:39)
[2019-12-04] MEDS ORDERED: Hyoscyamine SL 0.125 MG TAB.SUBL SL PRN (11:09)
[2019-12-04] MEDS ORDERED: Regadenoson 0.4 MG/5 ML SYRINGE IVP ONE (12:10)
[2019-12-04 13:19] LABS: Adenovirus Not Detected (Not Detect); Bordetella Pertussis Not Detected (Not Detect); Chlamydophila pneumoniae Not Detected (Not Detect); Coronavirus 229E Not Detected (Not Detect); Coronavirus HKU1 Not Detected (Not Detect); Coronavirus NL63 Not Detected (Not Detect); Coronavirus OC43 Not Detected (Not Detect); Human Metapneumovirus Not Detected (Not Detect); Human Rhinovirus/Enterovirus Not Detected (Not Detect); Influenza A Subtype 2009 H1 Not Detected (Not Detect); Influenza B Not Detected (Not Detect); Mycoplasma pneumoniae Not Detected (Not Detect); Parainfluenza Virus 1 Not Detected (Not Detect); Parainfluenza Virus 2 Not Detected (Not Detect); Parainfluenza Virus 3 Not Detected (Not Detect); Parainfluenza Virus 4 Not Detected (Not Detect); Respiratory Syncytial Virus Not Detected (Not Detect); SARS-CoV-2 Not Detected (Not Detect)
[2019-12-04] MEDS: *HR* Heparin 5,000 UNIT/ML VIAL SQ SCH (17:10)
[2019-12-04] MEDS ORDERED: *HR* Heparin 5,000 UNIT/ML VIAL SQ SCH (18:00)
[2019-12-05] MEDS: *HR* Heparin 5,000 UNIT/ML VIAL SQ SCH (05:30)
[2019-12-05] MEDS: Aspirin Enteric Coated 81 MG Tablet PO SCH (08:41)
[2019-12-05] MEDS ORDERED: *HR* Propofol 200 MG/20 ML VIAL IVP ONE (12:28)
[2019-12-05] MEDS ORDERED: Lidocaine -MPF 2% 2 ML VIAL ONE (12:29)
[2019-12-05 12:45] VITALS: BP 144/58
== END 2019-12-05 15:45 | disposition home or self-care (01) ==
LOC: 3BNU 18:19 → EMEROOARM 18:19 → SUATTDRO 21:18 → 3BNU 21:47
PROVIDERS: ADMIT Internal Medicine; ATTEND Internal Medicine
PROC: ENDOEBX (2019-12-05 21:35)